=== PATIENT | female | born 1990 | race African-American/Black ===

== ENCOUNTER 2016-12-29 14:48 | Emergency (ER) | payer SELFPAY ==
--- NOTE | 2016-12-29 14:56 | ER Document Report ---
ED Medical Screen (RME) - General Stated Complaint: RIGHT EAR PAIN Notes: Patient complains of right ear right-sided ear pain for 1 week, worse today. Denies cough or cold symptoms. I have greeted and performed a rapid initial assessment of this patient. A comprehensive ED assessment and evaluation of the patient, analysis of test results and completion of the medical decision making process will be conducted by additional ED providers. TRAVEL OUTSIDE OF THE [place] IN LAST 30 DAYS: No - Related Data Allergies/Adverse Reactions: No Known Allergies Allergy (Verified 04/02/15 16:41) Past Medical History - Social History Family history: Reviewed & Not Pertinent Skin Medical History: Denies Hx MRSA - Immunizations Immunizations up to date: Yes Hx Diphtheria, Pertussis, Tetanus Vaccination: Yes - 2012 Physical Exam - General Notes: Patient in no acute distress, talking on her cell phone in triage.
--- NOTE | 2016-12-29 17:01 | ER Document Report ---
ED Headache - General Chief Complaint: Ear Pain Stated Complaint: RIGHT EAR PAIN Notes: Patient says that she's been experiencing pain in her right ear for the past week. Today, she felt pain in the right confucianism area and right eye and a generalized headache, described as "pressure". Has not taken anything for it, including aspirin or ibuprofen. Patient says she's been having headaches like this over the past couple of years her most recent was in May,. She says that she's had about 10 total episodes like this, but most of the time they don't last but a very short time and go away. Does not have any change in her vision. No nausea or vomiting. No fevers. No head congestion and nasal congestion or sinus congestion. LMP 2 weeks ago. TRAVEL OUTSIDE OF THE [place] IN LAST 30 DAYS: No - Related Data Allergies/Adverse Reactions: No Known Allergies Allergy (Verified 12/29/16 14:55) Past Medical History - Social History Smoking Status: Never Smoker Chew tobacco use (# tins/day): No Frequency of alcohol use: None Drug Abuse: None Family History: Reviewed & Not Pertinent, Arthritis, CAD, DM, Hyperlipidemia, Hypertension, Thyroid Disfunction Skin Medical History: Denies Hx MRSA - Immunizations Immunizations up to date: Yes Hx Diphtheria, Pertussis, Tetanus Vaccination: Yes - 2012 Review of Systems - Review of Systems Constitutional: denies: Fever EENT: Eye pain, Ear pain - See history of present illness.. denies: Eye discharge, Blurred vision, Tearing, Double vision, Ear discharge, Nose congestion, Sinus pressure, Difficulty swallowing, Mouth pain, Dental problem Cardiovascular: denies: Chest pain Respiratory: denies: Cough Gastrointestinal: denies: Abdominal pain, Diarrhea, Vomiting Physical Exam - Vital signs Vitals: Temp Pulse Resp BP Pulse Ox 98.2 F 88 18 136/70 H 97 12/29/16 14:53 12/29/16 14:53 12/29/16 14:53 12/29/16 14:53 12/29/16 14:53 Interpretation: Normal - Notes Notes: PHYSICAL EXAMINATION: GENERAL: Well-appearing, in no acute distress. Vital signs are normal. HEAD: Atraumatic, normocephalic. Not tender in the right confucianism. EYES: Pupils equal round and reactive to light, extraocular movements intact. Patient does not have any discomfort or pain when I palpate either eyeball. Both eyes are of normal pressure to my touch. Nothing that makes me think that this is glaucoma. No tearing from the right eye. No injection of the right conjunctiva. ENT: oropharynx clear without exudates. Moist mucous membranes. TMs are both visualized and they are normal. NECK: Normal range of motion, supple. LUNGS: Breath sounds clear and equal bilaterally. HEART: Regular rate and rhythm without murmurs. ABDOMEN: Soft, nontender. No guarding or rebound. BACK: No tenderness throughout entire back. EXTREMITIES: Normal range of motion without pain. NEUROLOGICAL: Normal speech, normal gait. Normal sensory, motor, and reflex exams. Awake, alert, and oriented x3. Cranial nerves normal. SKIN: Warm, dry, no rashes. Course - Vital Signs Vital signs: Temp Pulse Resp BP Pulse Ox 98.2 F 68 19 130/66 H 98 12/29/16 17:20 12/29/16 17:20 12/29/16 17:20 12/29/16 17:20 12/29/16 17:20 Discharge - Discharge Clinical Impression: Face pain, Ear pain, right Condition: Stable Disposition: HOME, SELF-CARE Additional Instructions: HEADACHE: The physician does not feel that the headache you are experiencing has a serious underlying cause. Most headaches are due to emotional stress, with resultant muscle tension (tension headache). Occasionally, headaches are secondary to changes in the blood vessels of the scalp (vascular headache and migraine headache). Sometimes, a headache is the first symptom of another developing illness, such as a viral infection. You have no evidence of stroke, bleeding, meningitis, or other serious cause of your headache. The treatment of headaches varies with the severity and cause of the pain. Not all headaches need pain shots. In fact, there is evidence that using narcotics for headaches may make them worse in the long run. The physician will determine the therapy that's in your best interest. If you develop a fever, if the headache is different from any you've previously experienced, or if the headache progressively worsens, then call your physician at once or go to the emergency room. NORMAL EXAM AND WORKUP: At this time, your examination and workup show no significant abnormality. No significant abnormal physical findings were noted. All laboratory, EKG, and imaging (x-ray, CT scans, ultrasound) studies that were ordered show no significant abnormality. Although your examination and all studies that were ordered showed no significant abnormal finding, there are no examinations and no studies that are 100% accurate. There is always the possibility that some abnormality could exist and not be detected with physical examination or within the limits and capabilities of laboratory and other studies. You should return or follow up as you were instructed on your visit today for further evaluation if your symptoms do not resolve. Ibuprofen Ibuprofen is an excellent, safe drug for pain control. In addition, it has potent antiinflammatory effects which are beneficial, especially in the treatment of injuries, arthritis, or tendonitis. It's best to take ibuprofen with food. Persons with ulcer disease or allergy to aspirin should notify their physician of this before taking ibuprofen. Take the medication exactly as prescribed. Don't take additional doses unless instructed to do so by your doctor. If you develop wheezing, shortness of breath, hives, faintness, stomach pain, vomiting, or dark black stools, return for re-evaluation at once. USE OF ACETAMINOPHEN (Tylenol): Acetaminophen may be taken for pain relief or fever control. It's much safer than aspirin, offering a wider range of "safe" dosages. It is safe during . Some brand names are Tylenol, Panadol, Datril, Anacin 3, Tempra, and Liquiprin. Acetaminophen can be repeated every four hours. The following are maximum recommended dosages: WEIGHT Dose Drops Elixir Chewable( 80mg) (LBS.) drprs=droppers tsp=teaspoon >89 pounds or adults 650 mg to 900 mg Acetaminophen can be repeated every four hours. Maximum dose not to exceed 4000 mg a day. These maximum recommended dosages are slightly higher than the dosages written on the product container, but these dosages are very safe and below the toxic dosage for acetaminophen. FOLLOW-UP CARE: If you have been referred to a physician for follow-up care, call the physician s office for an appointment as you were instructed or within the next two days. If you experience worsening or a significant change in your symptoms, notify the physician immediately or return to the Emergency Department at any time for re-evaluation. If you continue to have your symptoms or recurrent episodes of this face pain, I recommend you follow-up with a neurologist for possible migraine headache. I am providing you with contact information for neurologist in the area. Forms: Return to Work Referrals: BARRY VICTORIA MD [COMMUNITY BASED STAFF] - Follow up as needed MACEY FAIRCHILD MD [ACTIVE STAFF] - Follow up as needed RENETTA SMALLWOOD MD [EMERITUS] - Follow up as needed
[2016-12-29 17:36] VITALS: BP 130/66
== END 2016-12-29 17:20 | disposition home or self-care (01) ==
LOC: ER 14:48
DX: H92.01 Otalgia, right ear (principal); R51 Headache
CPT/HCPCS: 99282

== ENCOUNTER 2017-05-07 13:17 | Emergency (ER) | payer SELFPAY ==
--- NOTE | 2017-05-07 14:24 | ER Document Report ---
ED Medical Screen (RME) - General Chief Complaint: Nausea/Vomiting/Diarrhea Stated Complaint: DIARRHEA,ABDOMINAL PAIN,VOMITING Time Seen by Provider: 05/07/17 14:17 Mode of Arrival: Ambulatory Information source: Patient TRAVEL OUTSIDE OF THE [place] IN LAST 30 DAYS: No - HPI Onset: Other - 2 DAYS Onset/Duration: Gradual Quality of pain: Dull Severity: Mild Associated Symptoms: Diarrhea, Nausea, Vomiting. denies: Chills, Fever, Sweating Exacerbated by: Food Relieved by: Denies Similar symptoms previously: No Recently seen / treated by doctor: No - Related Data Allergies/Adverse Reactions: No Known Allergies Allergy (Verified 05/07/17 13:22) Home Medications: Current Home Medications No Home Medications 05/07/17 [History] Past Medical History - General Information source: Patient - Social History Chew tobacco use (# tins/day): No Frequency of alcohol use: Occasional Drug Abuse: None Lives with: Family Family history: Reviewed & Not Pertinent - Medical History Medical History: Negative Renal/ Medical History: Denies: Hx Peritoneal Dialysis Skin Medical History: Denies Hx MRSA Psychiatric Medical History: Reports: None Surgical Hx: Negative Past Surgical History: Reports: Hx Oral Surgery - wisdom tooth - Immunizations Immunizations up to date: Yes Hx Diphtheria, Pertussis, Tetanus Vaccination: Yes - 2012 Review of Systems - Review of Systems Constitutional: No symptoms reported EENT: No symptoms reported Cardiovascular: No symptoms reported Respiratory: No symptoms reported Gastrointestinal: See HPI Female Genitourinary: No symptoms reported Physical Exam - Vital signs Vitals: Temp Pulse Resp BP Pulse Ox 98.4 F 89 14 131/71 H 97 05/07/17 13:22 05/07/17 13:22 05/07/17 13:22 05/07/17 13:22 05/07/17 13:22 Interpretation: Normal. No: Tachycardic, Tachypneic, Febrile - General General appearance: Appears well, Alert In distress: None Course - Vital Signs Vital signs: Temp Pulse Resp BP Pulse Ox 98.4 F 89 14 131/71 H 97 05/07/17 13:22 05/07/17 13:22 05/07/17 13:22 05/07/17 13:22 05/07/17 13:22
[2017-05-07 15:53] LABS: ABSOLUTE BASOPHILS # (AUTO) 0.1 10^3/uL (0.0-0.2); ABSOLUTE EOSINOPHILS # (AUTO) 0.1 10^3/uL (0.0-0.6); ABSOLUTE LYMPHOCYTES (AUTO) 3.2 10^3/uL (0.5-4.7); ABSOLUTE MONOCYTES (AUTO) 1.3 10^3/uL (0.1-1.4); ABSOLUTE NEUT (AUTO) 5.1 10^3/uL (1.7-8.2); BASOPHILS % (AUTO) 0.7 % (0-2); EOSINOPHILS % (AUTO) 0.6 % (0-6); HEMATOCRIT 34.4 % (36.0-47.0); HEMOGLOBIN 10.9 g/dL (12.0-15.5); HGB HCT DIFFERENCE -1.7; LYMPHOCYTES % (AUTO) 32.8 % (13-45); MEAN CORPUSCULAR HEMOGLOBIN 24.6 pg (27.0-33.4); MEAN CORPUSCULAR HGB CONC 31.7 g/dL (32.0-36.0); MEAN CORPUSCULAR VOLUME 77 fl (80-97); MONOCYTES % (AUTO) 13.3 % (3-13); RED BLOOD COUNT 4.45 10^6/uL (3.72-5.28); SEGMENTED NEUTROPHILS % (AUTO) 52.6 % (42-78); WHITE BLOOD COUNT 9.7 10^3/uL (4.0-10.5)
[2017-05-07 16:01] LABS: ALANINE AMINOTRANSFERASE 28 U/L (9-52); ALBUMIN 4.5 g/dL (3.5-5.0); ALKALINE PHOSPHATASE 93 U/L (38-126); ANION GAP 12 (5-19); ASPARTATE AMINO TRANSFERASE 37 U/L (14-36); BILIRUBIN,DIRECT 0.3 mg/dL (0.0-0.4); BILIRUBIN,TOTAL 0.4 mg/dL (0.2-1.3); BLOOD UREA NITROGEN 9 mg/dL (7-20); CALCIUM 9.1 mg/dL (8.4-10.2); CARBON DIOXIDE 24 mmol/L (22-30); CHLORIDE 105 mmol/L (98-107); CREATININE RESULT 0.73 mg/dL (0.52-1.25); GLUCOSE 97 mg/dL (75-110); LIPASE 180.7 U/L (23-300); POTASSIUM 4.2 mmol/L (3.6-5.0); SODIUM 141.1 mmol/L (137-145); TOTAL PROTEIN 8.7 g/dL (6.3-8.2)
[2017-05-07 16:02] LABS: APPEARANCE,URINE SLIGHTLY-CLOUDY; BILIRUBIN,URINE NEGATIVE (NEGATIVE); GLUCOSE, URINE NEGATIVE (NEGATIVE); KETONES,URINE NEGATIVE (NEGATIVE); LEUKOCYTE ESTERASE,URINE NEGATIVE (NEGATIVE); NITRITE,URINE NEGATIVE (NEGATIVE); PROTEIN,URINE NEGATIVE (NEGATIVE); URINE SPECIFIC GRAVITY 1.021; UROBILINOGEN,URINE NEGATIVE mg/dL (<2.0)
[2017-05-07] MEDS ORDERED: ONDANSETRON HCL INJ/PF 4 MG/2 ML SDV IV ONE (16:28)
[2017-05-07] MEDS ORDERED: NORMAL SALINE 1000 ML 1,000 ML IV PRN (16:28)
--- NOTE | 2017-05-07 16:35 | ER Document Report ---
ED General - General Chief Complaint: Nausea/Vomiting/Diarrhea Stated Complaint: DIARRHEA,ABDOMINAL PAIN,VOMITING Time Seen by Provider: 05/07/17 14:17 Mode of Arrival: Ambulatory Information source: Patient Notes: 26-year-old female with no prior medical problems who presents to the emergency room with watery diarrhea, mucousy for the past several days. Patient denies any fever. She has been nauseated and she has had lower abdominal cramping. She does not she denies any abdominal pain. TRAVEL OUTSIDE OF THE [place] IN LAST 30 DAYS: No - HPI Onset: Yesterday Onset/Duration: Gradual Quality of pain: No pain, Cramping Severity: None Pain Level: Denies Associated symptoms: Diarrhea, Nausea, Vomiting. denies: Chest pain, Fever, Shortness of breath Exacerbated by: Denies Relieved by: Denies Similar symptoms previously: No Recently seen / treated by doctor: No - Related Data Allergies/Adverse Reactions: No Known Allergies Allergy (Verified 05/07/17 13:22) Past Medical History - General Information source: Patient - Social History Smoking Status: Never Smoker Cigarette use (# per day): No Chew tobacco use (# tins/day): No Frequency of alcohol use: Occasional Drug Abuse: None Lives with: Family Family History: Reviewed & Not Pertinent, Arthritis, CAD, DM, Hyperlipidemia, Hypertension, Thyroid Disfunction Patient has suicidal ideation: No Patient has homicidal ideation: No - Medical History Medical History: Negative Renal/ Medical History: Denies: Hx Peritoneal Dialysis Skin Medical History: Denies Hx MRSA Psychiatric Medical History: Reports: None Past Surgical History: Reports: Hx Oral Surgery - wisdom tooth - Immunizations Immunizations up to date: Yes Hx Diphtheria, Pertussis, Tetanus Vaccination: Yes - 2012 Review of Systems - Review of Systems Constitutional: denies: Chills, Fever EENT: No symptoms reported Cardiovascular: No symptoms reported Respiratory: No symptoms reported Gastrointestinal: See HPI Genitourinary: No symptoms reported Female Genitourinary: No symptoms reported Musculoskeletal: No symptoms reported Skin: No symptoms reported Hematologic/Lymphatic: No symptoms reported Neurological/Psychological: No symptoms reported Physical Exam - Vital signs Vitals: Temp Pulse Resp BP Pulse Ox 98.4 F 89 14 131/71 H 97 05/07/17 13:22 05/07/17 13:22 05/07/17 13:22 05/07/17 13:22 05/07/17 13:22 Notes: Physical exam: GENERAL: 26-year-old female, alert and oriented 3, no acute distress HEAD: Atraumatic, normocephalic. EYES: Pupils equal round and reactive to light, extraocular movements intact, sclera anicteric, conjunctiva are normal. ENT: TMs normal, nares patent, oropharynx clear without exudates. Moist mucous membranes. NECK: Normal range of motion, supple without lymphadenopathy or JVD. LUNGS: Breath sounds clear to auscultation bilaterally and equal. No wheezes rales or rhonchi. HEART: Regular rate and rhythm without murmurs, rubs or gallops. ABDOMEN: Soft, normoactive bowel sounds. No tenderness to palpation. No guarding, no rebound. No masses appreciated. EXTREMITIES: Normal range of motion, no pitting or edema. No clubbing or cyanosis. NEUROLOGICAL: Cranial nerves II through XII grossly intact. Normal speech, normal gait. PSYCH: Normal mood, normal affect. SKIN: Warm, Dry, normal turgor, no rashes or lesions noted. Course - Re-evaluation Re-evalutation: Repeat exam shows a soft abdomen without any peritoneal findings. Patient does not have any significant abdominal tenderness. We will treat supportively with fluids, anti-emetics and pain medicines. 05/07/17 20:56 - Vital Signs Vital signs: Temp Pulse Resp BP Pulse Ox 98.4 F 86 18 111/82 99 05/07/17 13:22 05/07/17 19:51 05/07/17 21:21 05/07/17 21:21 05/07/17 21:21 - Laboratory Result Diagrams: 05/07/17 15:30 05/07/17 15:30 Laboratory results interpreted by me: 05/07/17 05/07/17 15:30 15:30 Hgb 10.9 L Hct 34.4 L MCV 77 L MCH 24.6 L MCHC 31.7 L RDW 18.0 H Monocytes % 13.3 H AST 37 H Total Protein 8.7 H Discharge - Discharge Clinical Impression: Diarrhea with nausea Condition: Stable Disposition: HOME, SELF-CARE Instructions: Diarrhea, Nonspecific ([facility]), Antinausea Medication ([facility]), Vomiting ([facility]), Intravenous (IV) Fluids ([facility]) Additional Instructions: Recommendations: Rest, drink plenty of fluids, advance diet slowly. Take the Phenergan for nausea. Take Midol for any cramping. Return to the emergency room for any worsening pain, worsening bleeding, worsening diarrhea or any concerns or getting worse. Called the [facility] for a follow-up appointment. Prescriptions: Promethazine HCl [Phenergan 25 mg Tablet] 25 mg PO Q6H PRN #15 tablet PRN Reason: Forms: Return to Work Referrals: [facility] [Provider Group] - Follow up as needed
[2017-05-07] MEDS ORDERED: ONDANSETRON ODT 4 MG TAB (6 TAB/DSPK) PO PRN (20:58)
[2017-05-07 21:21] VITALS: BP 111/82
== END 2017-05-07 21:20 | disposition home or self-care (01) ==
LOC: ER 13:17
DX: R19.7 Diarrhea, unspecified (principal); R11.2 Nausea with vomiting, unspecified; R10.30 Lower abdominal pain, unspecified
CPT/HCPCS: 99283; 96361; 96374; 36415; 83690; 84703; 85025; 82272; 80053; 81001; 87493 ×2; J2405; J7030

== ENCOUNTER 2017-05-09 16:17 | Emergency (ER) | payer SELFPAY ==
[2017-05-09] MEDS ORDERED: NORMAL SALINE 1000 ML 1,000 ML IV PRN (17:17)
--- NOTE | 2017-05-09 17:18 | ER Document Report ---
ED Medical Screen (RME) - General Chief Complaint: Abdominal Pain Stated Complaint: ABDOMINAL PAIN,DIARRHEA Time Seen by Provider: 05/09/17 17:07 Mode of Arrival: Ambulatory Information source: Patient TRAVEL OUTSIDE OF THE [place] IN LAST 30 DAYS: No - HPI Patient complains to provider of: Abdominal pain with diarrhea Onset: Last week Onset/Duration: Persistent Quality of pain: Achy, Cramping Severity: Mild Pain Level: 2 Associated Symptoms: Diarrhea Notes: 05/09/17 17:18 Patient is a 26-year-old female presenting to the emergency room complaining of lower abdominal pain with diarrhea that has been going on for the past few days , was seen in this emergency room recently and had evaluation, was called by physician today for checkup, she reported she was not feeling much better and was advised to come back to the emergency room for reevaluation - Related Data Allergies/Adverse Reactions: No Known Allergies Allergy (Verified 05/09/17 16:35) Past Medical History - Social History Chew tobacco use (# tins/day): No Frequency of alcohol use: Social Drug Abuse: None Family history: Reviewed & Not Pertinent Renal/ Medical History: Denies: Hx Peritoneal Dialysis Skin Medical History: Denies Hx MRSA Past Surgical History: Reports: Hx Oral Surgery - wisdom tooth - Immunizations Immunizations up to date: Yes Hx Diphtheria, Pertussis, Tetanus Vaccination: Yes - 2012 Physical Exam - Vital signs Vitals: Temp Pulse Resp BP Pulse Ox 97.9 F 80 16 140/76 H 98 05/09/17 16:35 05/09/17 16:35 05/09/17 16:35 05/09/17 16:35 05/09/17 16:35 Course - Vital Signs Vital signs: Temp Pulse Resp BP Pulse Ox 97.9 F 80 16 140/76 H 98 05/09/17 16:35 05/09/17 16:35 05/09/17 16:35 05/09/17 16:35 05/09/17 16:35
[2017-05-09 18:13] LABS: ABSOLUTE EOSINOPHILS # (AUTO) 0.1 10^3/uL (0.0-0.6); ABSOLUTE LYMPHOCYTES (AUTO) 3.5 10^3/uL (0.5-4.7); ABSOLUTE NEUT (AUTO) 3.3 10^3/uL (1.7-8.2); BASOPHILS % (AUTO) 0.4 % (0-2); EOSINOPHILS % (AUTO) 1.7 % (0-6); HEMATOCRIT 32.6 % (36.0-47.0); HEMOGLOBIN 10.4 g/dL (12.0-15.5); HGB HCT DIFFERENCE -1.4; LYMPHOCYTES % (AUTO) 43.9 % (13-45); MEAN CORPUSCULAR HEMOGLOBIN 25.2 pg (27.0-33.4); MEAN CORPUSCULAR VOLUME 79 fl (80-97); MONOCYTES % (AUTO) 12.7 % (3-13); RED BLOOD COUNT 4.15 10^6/uL (3.72-5.28); RED CELL DISTRIBUTION WIDTH 17.8 % (11.5-14.0); SEGMENTED NEUTROPHILS % (AUTO) 41.3 % (42-78)
[2017-05-09 18:36] LABS: ALANINE AMINOTRANSFERASE 36 U/L (9-52); ALBUMIN 4.2 g/dL (3.5-5.0); ALKALINE PHOSPHATASE 74 U/L (38-126); ANION GAP 14 (5-19); ASPARTATE AMINO TRANSFERASE 30 U/L (14-36); BILIRUBIN,DIRECT 0.3 mg/dL (0.0-0.4); BILIRUBIN,TOTAL 0.4 mg/dL (0.2-1.3); BLOOD UREA NITROGEN 8 mg/dL (7-20); CALCIUM 9.3 mg/dL (8.4-10.2); CARBON DIOXIDE 20 mmol/L (22-30); CHLORIDE 104 mmol/L (98-107); CREATININE RESULT 0.71 mg/dL (0.52-1.25); GLUCOSE 79 mg/dL (75-110); LIPASE 309.7 U/L (23-300); POTASSIUM 4.2 mmol/L (3.6-5.0); SODIUM 138.4 mmol/L (137-145)
[2017-05-09 19:27] LABS: APPEARANCE,URINE CLEAR; BILIRUBIN,URINE NEGATIVE (NEGATIVE); GLUCOSE, URINE NEGATIVE (NEGATIVE); KETONES,URINE NEGATIVE (NEGATIVE); LEUKOCYTE ESTERASE,URINE NEGATIVE (NEGATIVE); NITRITE,URINE NEGATIVE (NEGATIVE); PROTEIN,URINE NEGATIVE (NEGATIVE); URINE SPECIFIC GRAVITY 1.009; UROBILINOGEN,URINE NEGATIVE mg/dL (<2.0)
--- NOTE | 2017-05-09 20:48 | RADIOLOGY REPORT (SQ) ---
EXAM DESCRIPTION: CT ABD/PELVIS WITH IV ORAL COMPLETED DATE/TIME: 05/09/2017 8:39 pm REASON FOR STUDY: abdominal pain COMPARISON: 03/30/2011 TECHNIQUE: CT scan of the abdomen and pelvis performed with intravenous and oral contrast using nicki tip scanning technique with dynamic intravenous contrast injection. Images reviewed with lung, soft t issue, and bone windows. Reconstructed coronal and sagittal MPR images reviewed. Delayed images for e valuation of the urinary system also acquired. All images stored on PACS. All CT scanners at this facility use dose modulation, iterative reconstruction, and/or weight based d osing when appropriate to reduce radiation dose to as low as reasonably achievable (ALARA). [facility]: Dose Right [facility]: CareDose [facility]: Dose Right [facility]: Teradose 4D [facility]: Life800 CONTRAST TYPE AND DOSE: contrast/concentration: Isovue 370.00 mg/ml; Total Contrast Delivered: 100.0 ml; Total Saline Delivered: 70.0 ml RENAL FUNCTION: None required. The patient is less than 50 years old. RADIATION DOSE: Up-to-date CT equipment and radiation dose reduction techniques were employed. CTDIv ol: NaN - NaN mGy. DLP: 0 mGy-cm. . LIMITATIONS: None. FINDINGS: LOWER CHEST: No significant findings. No nodules or infiltrates. LIVER: Normal size. No masses. No dilated ducts. SPLEEN: Normal size. No focal lesions. PANCREAS: No masses. No significant calcifications. No adjacent inflammation or peripancreatic fluid collections. Pancreatic duct not dilated. GALLBLADDER: No identified stones by CT criteria. No inflammatory changes to suggest cholecystitis. ADRENAL GLANDS: No significant masses or asymmetry. RIGHT KIDNEY AND URETER: No solid masses. No significant calcifications. No hydronephrosis or hyd roureter. LEFT KIDNEY AND URETER: No solid masses. No significant calcifications. No hydronephrosis or hydr oureter. AORTA AND VESSELS: No aneurysm. No dissection. Renal arteries, SMA, celiac without stenosis. RETROPERITONEUM: No retroperitoneal adenopathy, hemorrhage or masses. BOWEL AND PERITONEAL CAVITY: Generalized thickening of the bowel wall and mucosa of the sigmoid colon and rectum. APPENDIX: Normal. PELVIS: Free fluid in the pelvis. ABDOMINAL WALL: No masses. No hernias. BONES: No significant or acute findings. OTHER: No other significant finding. IMPRESSION: Rectosigmoid colitis. Free fluid in the pelvis. TECHNICAL DOCUMENTATION: JOB ID: [id number] Quality ID # [id number]: Final reports with documentation of one or more dose reduction techniques (e.g., Au tomated exposure control, adjustment of the mA and/or kV according to patient size, use of iterative reconstruction technique) 2010 [employer]- All Rights Reserved
[2017-05-09] MEDS ORDERED: LEVOFLOXACIN 500 MG/D5W RTU 100 ML IV ONE (21:03)
--- NOTE | 2017-05-09 21:36 | ER Document Report ---
ED General - General Chief Complaint: Abdominal Pain Stated Complaint: ABDOMINAL PAIN,DIARRHEA Time Seen by Provider: 05/09/17 17:07 Mode of Arrival: Ambulatory Information source: Patient Notes: This is a 26-year-old female with no prior medical problems who presented yesterday to the ER with nausea, vomiting, diarrhea for several days. Patient states she started to have blood in the diarrhea. She was treated with IV fluids and anti-emetics. On a follow-up call today, she did states she was having lower abdominal cramping so I referred her back to the ER for repeat evaluation. Patient states the nausea has actually gotten better and she has been able to drink fluids. She has not vomited. But she has had persistent watery diarrhea and at times there seems to be some blood in it. She denies any mucus. She does have crampy abdominal discomfort. She denies any vaginal discharge. She denies any fever. TRAVEL OUTSIDE OF THE [place] IN LAST 30 DAYS: No - HPI Onset: Last week Onset/Duration: Gradual Quality of pain: Cramping, Dull Severity: Mild Pain Level: 1 Associated symptoms: Diarrhea, Nausea. denies: Chest pain, Fever, Vomiting, Shortness of breath Exacerbated by: Denies Relieved by: Denies Similar symptoms previously: Yes Recently seen / treated by doctor: Yes - Related Data Allergies/Adverse Reactions: No Known Allergies Allergy (Verified 05/09/17 16:35) Past Medical History - General Information source: Patient - Social History Smoking Status: Never Smoker Cigarette use (# per day): No Chew tobacco use (# tins/day): No Frequency of alcohol use: Social Drug Abuse: None Lives with: Family Family History: Reviewed & Not Pertinent, Arthritis, CAD, DM, Hyperlipidemia, Hypertension, Thyroid Disfunction Patient has suicidal ideation: No Patient has homicidal ideation: No - Medical History Medical History: Negative Renal/ Medical History: Denies: Hx Peritoneal Dialysis Skin Medical History: Denies Hx MRSA Past Surgical History: Reports: Hx Oral Surgery - wisdom tooth - Immunizations Immunizations up to date: Yes Hx Diphtheria, Pertussis, Tetanus Vaccination: Yes - 2012 Review of Systems - Review of Systems Constitutional: denies: Chills, Fever EENT: No symptoms reported Cardiovascular: No symptoms reported Respiratory: No symptoms reported Gastrointestinal: See HPI Genitourinary: No symptoms reported Female Genitourinary: No symptoms reported Musculoskeletal: No symptoms reported Skin: No symptoms reported Hematologic/Lymphatic: No symptoms reported Neurological/Psychological: No symptoms reported Physical Exam - Vital signs Vitals: Temp Pulse Resp BP Pulse Ox 97.9 F 80 16 140/76 H 98 05/09/17 16:35 05/09/17 16:35 05/09/17 16:35 05/09/17 16:35 05/09/17 16:35 Notes: Physical exam: GENERAL: 26-year-old female, alert and oriented 3, no acute distress HEAD: Atraumatic, normocephalic. EYES: Pupils equal round and reactive to light, extraocular movements intact, sclera anicteric, conjunctiva are normal. ENT: TMs normal, nares patent, oropharynx clear without exudates. Moist mucous membranes. NECK: Normal range of motion, supple without lymphadenopathy or JVD. LUNGS: Breath sounds clear to auscultation bilaterally and equal. No wheezes rales or rhonchi. HEART: Regular rate and rhythm without murmurs, rubs or gallops. ABDOMEN: Soft, normoactive bowel sounds. Mild tenderness to the lower abdomen. No guarding, no rebound. No masses appreciated. EXTREMITIES: Normal range of motion, no pitting or edema. No clubbing or cyanosis. NEUROLOGICAL: Cranial nerves II through XII grossly intact. Normal speech, normal gait. PSYCH: Normal mood, normal affect. SKIN: Warm, Dry, normal turgor, no rashes or lesions noted. Course - Re-evaluation Re-evalutation: 05/09/17 21:37 In general, the patient does look better than 2 days ago when I saw her. However, because of the persistent discomfort, we did get a CT of the abdomen and it does show a colitis. Her abdomen is soft and there is no peritonitis at this time. The patient was started on IV levofloxacin and I am going to send her home with oral Levaquin. Her white blood count is remained normal. Her electrolytes have been good. The stool culture from 2 days ago was canceled for some unknown reason, so we did send a fresh sample down to the lab for culture. The stool was liquid green without any obvious blood. 05/09/17 21:50 05/09/17 21:52 - Vital Signs Vital signs: Temp Pulse Resp BP Pulse Ox 97.9 F 80 16 140/76 H 98 05/09/17 16:35 05/09/17 16:35 05/09/17 16:35 05/09/17 16:35 05/09/17 16:35 - Laboratory Result Diagrams: 05/09/17 17:35 05/09/17 17:35 Laboratory results interpreted by me: 05/09/17 05/09/17 17:35 17:35 Hgb 10.4 L Hct 32.6 L MCV 79 L MCH 25.2 L RDW 17.8 H Seg Neutrophils % 41.3 L Carbon Dioxide 20 L Lipase 309.7 H - Diagnostic Test Radiology reviewed: Image reviewed, Reports reviewed - The CT shows a recto sigmoid colitis. There is some free fluid in the pelvic cul-de-sac. Discharge - Discharge Clinical Impression: Colitis Condition: Stable Disposition: HOME, SELF-CARE Instructions: Colitis, Nonspecific ([facility]) Additional Instructions: Recommendations: Rest, drink plenty of fluids. Continue the Phenergan for nausea as needed. Take the antibiotic once daily (levofloxacin): Start tomorrow, you given today' s dose in the ER. Take the Percocet as needed for pain: This is a lower dose. Follow-up with the GI doctor: I left the number on the chart. Call the office tomorrow and tell them you are in the emergency room and diagnosed with colitis in the ER doctor wanted to seen in the next week or 2. We sent stool cultures which may take several days to come back. Return to the emergency room for worsening pain, not tolerating fluids or any concerns or getting worse. Prescriptions: Oxycodone HCl/Acetaminophen [Percocet 2.5-325 Mg Tablet] 1 each PO Q6HP PRN #20 tablet PRN Reason: Levofloxacin 500 mg PO DAILY #7 ml Referrals: STEPHEN SALDAÑA MD [ACTIVE STAFF] - Follow up as needed (This is the number of the GI office: Call tomorrow and tell them you in the emergency room for colitis and the ER doctor wanted you seen in the next week or so. Bring a copy of your labs, and CT report with you when you go see that )
[2017-05-09 23:58] VITALS: BP 101/67
== END 2017-05-10 00:06 | disposition home or self-care (01) ==
LOC: ER 16:17
DX: A02.0 Salmonella enteritis (principal); R10.30 Lower abdominal pain, unspecified; R11.0 Nausea
CPT/HCPCS: 99284; 96361; 96365; 36415; 87045; 87086; 87205; 83690; 84703; 85025; 87077; 80053; 81001; 87186; 74177; J1956; J7030

== ENCOUNTER 2017-11-06 15:27 | Emergency (ER) | payer SELFPAY ==
[2017-11-06 15:35] VITALS: BP 151/79
--- NOTE | 2017-11-06 16:18 | ER Document Report ---
HPI - HPI Patient complains to provider of: Headache congestion sore throat cough chest pain runny nose shortness of br Onset: Other - Onset/Duration: Persistent Severity: Moderate Pain Level: 4 Context: Patient presents emergency department with multiple complaints to include headache runny nose sore throat shortness of breath runny eyes and chest pain. She reports her main complaint is a headache in her forehead with her congested nose. She reports she took Tylenol last night and this morning. She reports she is eating drinking without problems denies fever nausea vomiting diarrhea. Reports her chest started hurting when she had a cough. She is not coughing now. No shortness of breath now. Patient reports she had to leave work because she was not feeling well. She denies trauma. Patient speaking in clear voice no distress drinking fountain drink. Associated Symptoms: Nonproductive cough, Headache. denies: Fever, Nausea, Vomiting Exacerbated by: Denies Relieved by: Denies Similar symptoms previously: No Recently seen / treated by doctor: No - REPRODUCTIVE Reproductive: DENIES: : Past Medical History - General Information source: Patient Last Menstrual Period: Last month - Social History Smoking Status: Unknown if Ever Smoked Cigarette use (# per day): No Frequency of alcohol use: Occasional Drug Abuse: None Occupation: [employer] Lives with: Family Family History: Reviewed & Not Pertinent, Arthritis, CAD, DM, Hyperlipidemia, Hypertension, Thyroid Disfunction Patient has suicidal ideation: No Patient has homicidal ideation: No - Medical History Medical History: Negative Renal/ Medical History: Denies: Hx Peritoneal Dialysis Skin Medical History: Denies Hx MRSA Past Surgical History: Reports: Hx Oral Surgery - wisdom tooth - Immunizations Immunizations up to date: Yes Hx Diphtheria, Pertussis, Tetanus Vaccination: Yes - 2013 Vertical Provider Document - CONSTITUTIONAL Agree With Documented VS: Yes Exam Limitations: No Limitations General Appearance: WD/WN, No Apparent Distress - INFECTION CONTROL TRAVEL OUTSIDE OF THE [place] IN LAST 30 DAYS: No - HEENT HEENT: Atraumatic, Normocephalic, PERRLA. negative: Pharyngeal Exudate, Pharyngeal Tenderness, Pharyngeal Erythema - Open his mouth wide speaks in clear voice, Tympanic Membrane Red, Tympanic Membrane Bulging - NECK Neck: Normal Inspection, Supple. negative: Lymphadenopathy-Left, Lymphadenopathy-Right - RESPIRATORY Respiratory: Breath Sounds Normal, No Respiratory Distress - No cough noted during entire interview and assessment O2 Sat by Pulse Oximetry: 100 - CARDIOVASCULAR Cardiovascular: Regular Rate, Regular Rhythm - GI/ABDOMEN Gastrointestinal: Abdomen Soft, Abdomen Non-Tender - MUSCULOSKELETAL/EXTREMETIES Musculoskeletal/Extremeties: MAEW, FROM, Non-Tender - NEURO Level of Consciousness: Awake, Alert, Appropriate Motor/Sensory: No Motor Deficit - DERM Integumentary: Warm, Dry Course - Re-evaluation Re-evalutation: 11/06/17 16:16 Patient instructed on Tylenol for headache and decongestant for her nose. Patient instructed to push fluids good handwashing. She verbalized understanding tall instructions. - Vital Signs Vital signs: Temp Pulse Resp BP Pulse Ox 98.4 F 97 18 151/79 H 100 11/06/17 15:33 11/06/17 15:33 11/06/17 15:33 11/06/17 15:33 11/06/17 15:33 Discharge - Discharge Clinical Impression: Sore throat, headache, congestion Condition: Stable Disposition: HOME, SELF-CARE Instructions: Acetaminophen Additional Instructions: *You have been evaluated for a sore throat, nonproductive cough headache congestion *Take over the counter nasal decongestant, tylenol for headache as indicated *Warm salt water gargles and throat lozenges for comfort *Do not let anyone drink/eat after you *Good hand washing *Follow-up with a primary care provider within one week for recheck *Return to ED for worsening condition change, needs, trouble swallowing concerns Monitor your blood pressure. Your blood pressure was elevated today. This may be because you were anxious, in pain or because you need medication. It is important to follow up with your primary care provider for full evaluation. Forms: Elevated Blood Pressure, Return to Work
== END 2017-11-06 16:20 | disposition home or self-care (01) ==
LOC: ER 15:27
DX: J02.9 Acute pharyngitis, unspecified (principal); R09.81 Nasal congestion; R51 Headache; R07.9 Chest pain, unspecified; R09.89 Other specified symptoms and signs involving the circulatory and respiratory systems; H57.8 Other specified disorders of eye and adnexa
CPT/HCPCS: 99283

== ENCOUNTER 2018-02-17 13:02 | Emergency (ER) | payer SELFPAY ==
[2018-02-17 13:08] VITALS: BP 155/78
--- NOTE | 2018-02-17 13:13 | ER Document Report ---
HPI - HPI Patient complains to provider of: Abscess Onset: Yesterday Pain Level: 3 Context: 27-year-old obese female with a abscess under her left breast that she noticed yesterday. Is getting bigger and more painful and red. No allergies. No history of MRSA. Nondiabetic. Ended her menses yesterday. Associated Symptoms: None Exacerbated by: Sitting, Movement Relieved by: Denies - ROS ROS below otherwise negative: Yes Systems Reviewed and Negative: Yes All other systems reviewed and negative - REPRODUCTIVE Reproductive: DENIES: : Past Medical History - General Information source: Patient - Social History Smoking Status: Never Smoker Frequency of alcohol use: Occasional Drug Abuse: None Lives with: Family Family History: Reviewed & Not Pertinent, Arthritis, CAD, DM, Hyperlipidemia, Hypertension, Thyroid Disfunction - Medical History Medical History: Negative Renal/ Medical History: Denies: Hx Peritoneal Dialysis Skin Medical History: Denies Hx MRSA Past Surgical History: Reports: Hx Oral Surgery - wisdom tooth - Immunizations Immunizations up to date: Yes Hx Diphtheria, Pertussis, Tetanus Vaccination: Yes - 2012 Vertical Provider Document - CONSTITUTIONAL Agree With Documented VS: Yes Exam Limitations: No Limitations - INFECTION CONTROL TRAVEL OUTSIDE OF THE [place] IN LAST 30 DAYS: No - HEENT HEENT: Normocephalic - NECK Neck: Supple - MUSCULOSKELETAL/EXTREMETIES Musculoskeletal/Extremeties: MAEW - NEURO Level of Consciousness: Awake - DERM Integumentary: Abscess - Follicular abscess with 1 cm fluctuant middle and 2-1/ 2 cm of induration and erythema Adult Front & Back Diagram: 2 - abscess location Course - Vital Signs Vital signs: Temp Pulse Resp BP Pulse Ox 98.3 F 90 18 155/78 H 98 02/17/18 13:06 02/17/18 13:06 02/17/18 13:06 02/17/18 13:06 02/17/18 13:06 Procedures - Incision and Drainage Left Abdomen Time completed: 14:52 Type: Simple Anesthetic type: 1% Lidocaine mL's of anesthetic: 3 Blade size: 11 I&D procedure: Betadine prep applied Incision Method: Incision made by scalpel Notes: 02/17/18 14:52 moderate pus Discharge - Discharge Clinical Impression: I&D follicular abscess Condition: Good Disposition: HOME, SELF-CARE Instructions: Abscess (OM), Cephalexin (OM), Post Incision and Drainage, Trimethoprim-Sulfa (OM), Warm Packs (OM) Additional Instructions: warm compress Keep the dressing on for 2 days Remove the dressing and wash vigorously with a washcloth antibacterial soap and water and dry dressing Return to the emergency room any spinning of the symptoms or fever. Prescriptions: Ibuprofen [Motrin 800 mg Tablet] 800 mg PO Q8HP PRN #30 tablet PRN Reason: Cephalexin Monohydrate [Keflex 500 mg Capsule] 500 mg PO QID #28 capsule Sulfamethoxazole/Trimethoprim [Sulfamethoxazole-Tmp Ds Tablet] 1 each PO BID # 14 tablet
[2018-02-17] MEDS ORDERED: SULFAMETHOXAZOLE/TRIMETHOPRIM 800-160 MG TABLET PO ONE (13:22)
[2018-02-17] MEDS ORDERED: ACETAMINOPHEN 325 MG TABLET PO ONE (13:22)
[2018-02-17] MEDS ORDERED: ONDANSETRON 4 MG TAB.RAPDIS PO ONE (13:22)
[2018-02-17] MEDS ORDERED: CEPHALEXIN 500 MG CAPSULE PO ONE (13:22)
== END 2018-02-17 15:08 | disposition home or self-care (01) ==
LOC: ER 13:02
PROC: 0H97XZZ Drainage of Abdomen Skin, External Approach (ICD-10-PCS; principal; 2018-02-17)
DX: L02.211 Cutaneous abscess of abdominal wall (principal)
CPT/HCPCS: 99283; 10060; S0119

== ENCOUNTER 2018-03-30 08:24 | Emergency (ER) | payer SELFPAY ==
[2018-03-30] MEDS ORDERED: ONDANSETRON 4 MG TAB.RAPDIS PO ONE (09:33)
[2018-03-30 10:02] LABS: ALANINE AMINOTRANSFERASE 36 U/L (9-52); ALBUMIN 4.5 g/dL (3.5-5.0); ALKALINE PHOSPHATASE 81 U/L (38-126); ANION GAP 10 (5-19); ASPARTATE AMINO TRANSFERASE 35 U/L (14-36); BILIRUBIN,DIRECT 0.3 mg/dL (0.0-0.4); BILIRUBIN,TOTAL 0.5 mg/dL (0.2-1.3); BLOOD UREA NITROGEN 12 mg/dL (7-20); CARBON DIOXIDE 27 mmol/L (22-30); CHLORIDE 107 mmol/L (98-107); GLUCOSE 89 mg/dL (75-110); POTASSIUM 4.3 mmol/L (3.6-5.0); SODIUM 143.6 mmol/L (137-145); TOTAL PROTEIN 8.6 g/dL (6.3-8.2)
--- NOTE | 2018-03-30 11:40 | ER Document Report ---
ED GI/ - General Chief Complaint: Vomiting/Diarrhea Stated Complaint: STOMACH PAIN,DIARRHEA Time Seen by Provider: 03/30/18 08:55 Mode of Arrival: Ambulatory Information source: Patient Notes: Patient is a 27-year-old female who presents to the ER today for nausea, vomiting, watery diarrhea since midnight last night. Patient admits to all over abdominal cramping as well that started after the nausea and vomiting started. Patient admits to chills but denies any fever. Patient has no medical history of any abdominal issues. TRAVEL OUTSIDE OF THE [place] IN LAST 30 DAYS: No - Related Data Allergies/Adverse Reactions: No Known Allergies Allergy (Verified 03/30/18 08:25) Past Medical History - General Information source: Patient - Social History Smoking Status: Never Smoker Chew tobacco use (# tins/day): No Frequency of alcohol use: Social Drug Abuse: None Family History: Reviewed & Not Pertinent, Arthritis, CAD, DM, Hyperlipidemia, Hypertension, Thyroid Disfunction Patient has suicidal ideation: No Patient has homicidal ideation: No Renal/ Medical History: Denies: Hx Peritoneal Dialysis Skin Medical History: Denies Hx MRSA Past Surgical History: Reports: Hx Oral Surgery - wisdom teeth - Immunizations Immunizations up to date: Yes Hx Diphtheria, Pertussis, Tetanus Vaccination: Yes - 2012 Review of Systems - Review of Systems Constitutional: See HPI EENT: No symptoms reported Cardiovascular: No symptoms reported Respiratory: No symptoms reported Gastrointestinal: See HPI Genitourinary: No symptoms reported Female Genitourinary: No symptoms reported Musculoskeletal: No symptoms reported Skin: No symptoms reported Hematologic/Lymphatic: No symptoms reported Neurological/Psychological: No symptoms reported Physical Exam - Vital signs Vitals: Temp Pulse Resp BP Pulse Ox 97.6 F 93 16 130/72 H 100 03/30/18 10:03 03/30/18 10:03 03/30/18 10:03 03/30/18 10:03 03/30/18 10:03 - Notes Notes: PHYSICAL EXAMINATION: GENERAL: Well-appearing and in no acute distress. HEAD: Atraumatic, normocephalic. EYES: Pupils equal round and reactive to light, extraocular movements intact, sclera anicteric, conjunctiva are normal. NECK: Normal range of motion, supple without lymphadenopathy LUNGS: CTAB and equal. No wheezes rales or rhonchi. HEART: Regular rate and rhythm without murmurs ABDOMEN: Soft, no tenderness. No guarding, no rebound BACK: no vertebral tenderness, normal ROM GI/: no CVA tenderness EXTREMITIES: Normal range of motion, no pitting edema. No cyanosis. NEUROLOGICAL: Cranial nerves grossly intact. Normal sensory/motor exams. PSYCH: Normal mood, normal affect. SKIN: Warm, Dry, normal turgor, no rashes or lesions noted Course - Re-evaluation Re-evalutation: 03/30/18 15:49 Lab work is unremarkable today, negative today, patient has not vomited here at all nor has she had a bowel movement. Patient was given Zofran and tolerated p.o. fluids and food before leaving. Patient requested a work note. - Vital Signs Vital signs: Temp Pulse Resp BP Pulse Ox 97.8 F 65 14 133/78 H 98 03/30/18 12:18 03/30/18 12:18 03/30/18 12:18 03/30/18 12:18 03/30/18 12:18 - Laboratory Result Diagrams: 03/30/18 09:20 03/30/18 09:20 Laboratory results interpreted by me: 03/30/18 03/30/18 09:20 09:20 Hgb 10.9 L Hct 35.2 L MCV 77 L MCH 23.9 L MCHC 31.1 L RDW 19.7 H Plt Count 498 H Total Protein 8.6 H Discharge - Discharge Clinical Impression: Nausea vomiting and diarrhea Condition: Stable Disposition: HOME, SELF-CARE Instructions: Diarrhea, Nonspecific ([facility]), Vomiting ([facility]) Additional Instructions: Return immediately for any new or worsening symptoms. Follow up with primary care provider, call tomorrow to make followup appointment. Please drink plenty of fluids, Gatorade if you continue to have vomiting and diarrhea. Please stick to a bland diet, bananas, rice, applesauce and toast are foods on the brat diet. Prescriptions: Ondansetron [Zofran Odt 4 mg Tablet] 1 - 2 tab PO Q4H PRN #15 tab.rapdis PRN Reason: For Nausea/Vomiting Forms: Return to Work
[2018-03-30 11:44] LABS: ABSOLUTE BASOPHILS # (AUTO) 0.1 10^3/uL (0.0-0.2); ABSOLUTE EOSINOPHILS # (AUTO) 0.1 10^3/uL (0.0-0.6); ABSOLUTE LYMPHOCYTES (AUTO) 2.8 10^3/uL (0.5-4.7); ABSOLUTE MONOCYTES (AUTO) 0.8 10^3/uL (0.1-1.4); ABSOLUTE NEUT (AUTO) 4.6 10^3/uL (1.7-8.2); BASOPHILS % (AUTO) 0.6 % (0-2); HEMATOCRIT 35.2 % (36.0-47.0); HEMOGLOBIN 10.9 g/dL (12.0-15.5); LYMPHOCYTES % (AUTO) 33.3 % (13-45); MEAN CORPUSCULAR HEMOGLOBIN 23.9 pg (27.0-33.4); MEAN CORPUSCULAR HGB CONC 31.1 g/dL (32.0-36.0); MEAN CORPUSCULAR VOLUME 77 fl (80-97); MONOCYTES % (AUTO) 9.7 % (3-13); PLATELET COUNT 498 10^3/uL (150-450); RED BLOOD COUNT 4.57 10^6/uL (3.72-5.28); RED CELL DISTRIBUTION WIDTH 19.7 % (11.5-14.0); SEGMENTED NEUTROPHILS % (AUTO) 55.4 % (42-78); TOTAL CELLS COUNTED % (AUTO) 100 %; WHITE BLOOD COUNT 8.3 10^3/uL (4.0-10.5)
[2018-03-30 12:11] LABS: AMORPHOUS SEDIMENT,URINE 2+ /HPF; APPEARANCE,URINE TURBID; BILIRUBIN,URINE NEGATIVE (NEGATIVE); COLOR,URINE YELLOW; GLUCOSE, URINE NEGATIVE (NEGATIVE); KETONES,URINE NEGATIVE (NEGATIVE); LEUKOCYTE ESTERASE,URINE NEGATIVE (NEGATIVE); NITRITE,URINE NEGATIVE (NEGATIVE); PROTEIN,URINE NEGATIVE (NEGATIVE); URINE SPECIFIC GRAVITY 1.027; UROBILINOGEN,URINE NEGATIVE mg/dL (<2.0)
[2018-03-30 12:23] VITALS: BP 133/78
== END 2018-03-30 12:22 | disposition home or self-care (01) ==
LOC: ER 08:24
DX: R11.2 Nausea with vomiting, unspecified (principal); R19.7 Diarrhea, unspecified; R10.84 Generalized abdominal pain; R68.83 Chills (without fever)
CPT/HCPCS: 99284; 36415; 85025; 81025; 80053; 81001; S0119

== ENCOUNTER 2018-08-05 18:36 | Emergency (ER) | payer SELFPAY ==
[2018-08-05] MEDS ORDERED: NORMAL SALINE 1000 ML 1,000 ML IV ONE (19:25)
[2018-08-05] MEDS ORDERED: METOCLOPRAMIDE HCL INJ/PF 10 MG/2 ML SDV IV ONE (19:25)
[2018-08-05] MEDS ORDERED: DIPHENHYDRAMINE HCL 50 MG/ML VIAL IV ONE (19:26)
[2018-08-05] MEDS ORDERED: KETOROLAC TROMETHAMINE INJ/PF 30 MG/1 ML SDV IV ONE (19:26)
--- NOTE | 2018-08-05 21:28 | ER Document Report ---
ED Headache - General Chief Complaint: Headache Stated Complaint: HEADACHE Time Seen by Provider: 08/05/18 19:21 Notes: Patient is a 28 year old female that comes to the ED for chief complaint of a headache that started 2 days ago. She states the headache started gradually and worsened until it was throbbing behind her right eye. She reports photophobia and phonophobia, she denies nausea or vomiting, denies neck pain or stiffness. Denies fever chills. She reports occasional headaches, does not take medication for migraine. She states her headache is 5 out of 10 pain at this time. She denies any daily medications, LMP within the past month, denies any medical history other than dental surgery. TRAVEL OUTSIDE OF THE [place] IN LAST 30 DAYS: No - Related Data Allergies/Adverse Reactions: No Known Allergies Allergy (Verified 03/30/18 08:25) Past Medical History - General Information source: Patient - Social History Smoking Status: Never Smoker Chew tobacco use (# tins/day): No Frequency of alcohol use: Rare Drug Abuse: None Lives with: Family Family History: Reviewed & Not Pertinent, Arthritis, CAD, DM, Hyperlipidemia, Hypertension, Thyroid Disfunction Patient has suicidal ideation: No Patient has homicidal ideation: No - Medical History Medical History: Negative Renal/ Medical History: Denies: Hx Peritoneal Dialysis Skin Medical History: Denies Hx MRSA Past Surgical History: Reports: Hx Oral Surgery - wisdom teeth - Immunizations Immunizations up to date: Yes Hx Diphtheria, Pertussis, Tetanus Vaccination: Yes - 2012 Review of Systems - Review of Systems Constitutional: No symptoms reported EENT: No symptoms reported Cardiovascular: No symptoms reported Respiratory: No symptoms reported Gastrointestinal: No symptoms reported Genitourinary: No symptoms reported Female Genitourinary: No symptoms reported Musculoskeletal: No symptoms reported Skin: No symptoms reported Hematologic/Lymphatic: No symptoms reported Neurological/Psychological: See HPI Physical Exam - Vital signs Vitals: Temp Pulse Resp BP Pulse Ox 98.5 F 83 16 144/75 H 98 08/05/18 18:52 08/05/18 18:52 08/05/18 18:52 08/05/18 18:52 08/05/18 18:52 - Notes Notes: GENERAL: Alert, interacts well. Patient is squinting and avoiding light but does not appear to be in distress otherwise. HEAD: Normocephalic, atraumatic. EYES: Pupils equal, round, and reactive to light. Extraocular movements intact. ENT: Oral mucosa moist, tongue midline. Oropharynx unremarkable. Airway patent. Nares patent, no nasal septal hematoma, TM's intact. NECK: Full range of motion. Supple. Trachea midline. LUNGS: Clear to auscultation bilaterally, no wheezes, rales, or rhonchi. No respiratory distress. HEART: Regular rate and rhythm. No murmur ABDOMEN: Soft, non-tender. Non-distended. Bowel sounds present in all 4 quadrants. GENITOURINARY: Deferred EXTREMITIES: Moves all 4 extremities spontaneously. No edema, normal radial and dorsalis pedis pulses bilaterally. No cyanosis. BACK: no cervical, thoracic, lumbar midline tenderness. No saddle anesthesia, normal distal neurovascular exam. NEUROLOGICAL: Alert and oriented x3. Normal speech. [cranial nerves II through XII grossly intact]. PSYCH: Normal affect, normal mood. SKIN: Warm, dry, normal turgor. No rashes or lesions noted. Course - Re-evaluation Re-evalutation: Neurological exam is normal. Patient is not exhibiting any distress except for some mild photophobia. Reports 5 out of 10 headache. Unremarkable neck exam. Headache was gradual in onset, no vomiting. Borderline elevated blood pressure. No fever. After medications patient was reevaluated and states her headache is gone. She states she is tired and ready to go home. Triage labs reviewed. CBC unremarkable except for mild microcytic anemia, chemistry unremarkable, hCG is negative. Discussed headache, headache symptoms, treatment, follow-up, and return precautions. Patient states understanding and agreement with plan. - Vital Signs Vital signs: Temp Pulse Resp BP Pulse Ox 98.5 F 83 16 144/75 H 98 08/05/18 18:52 08/05/18 18:52 08/05/18 18:52 08/05/18 18:52 08/05/18 18:52 - Laboratory Result Diagrams: 08/05/18 22:05 08/05/18 22:05 Laboratory results interpreted by me: 08/05/18 08/05/18 22:05 22:05 Hgb 10.5 L Hct 32.5 L MCV 78 L MCH 25.3 L RDW 18.9 H Seg Neutrophils % 35.0 L Lymphocytes % 47.3 H Monocytes % 14.6 H Chloride 110 H Discharge - Discharge Clinical Impression: Headache Qualifiers: Headache type: unspecified Headache chronicity pattern: acute headache Intractability: not intractable Qualified Code(s): R51 - Headache Condition: Stable Disposition: HOME, SELF-CARE Additional Instructions: Your symptoms and response to treatment are consistent with a migraine. For headaches you can take [id number] medications such as ibuprofen, Tylenol, Benadryl, or you can take the medication as prescribed for headache. Follow-up with primary care for additional evaluation and management of headaches. Return if you worsen including returned or severe headache, fever of 100.4 or greater, vomiting, or any other concerning or worsening symptoms. Your workup today showed hemoglobin of 10.5 with the appearance of likely iron deficiency anemia. Recommendation is to improve iron in your diet, you can take the [id number] iron that you purchased, and follow-up with primary care for additional management of this. Prescriptions: Butalb/Acetaminophen/Caffeine [Fioricet (50-325-40 mg) Tablet] 1 - 2 tab PO Q4H #20 tab Forms: Return to Work, Elevated Blood Pressure
[2018-08-05 22:18] LABS: ABSOLUTE BASOPHILS # (AUTO) 0.1 10^3/uL (0.0-0.2); ABSOLUTE EOSINOPHILS # (AUTO) 0.2 10^3/uL (0.0-0.6); ABSOLUTE MONOCYTES (AUTO) 1.2 10^3/uL (0.1-1.4); BASOPHILS % (AUTO) 0.7 % (0-2); HEMOGLOBIN 10.5 g/dL (12.0-15.5); MEAN CORPUSCULAR HEMOGLOBIN 25.3 pg (27.0-33.4); MONOCYTES % (AUTO) 14.6 % (3-13); RED BLOOD COUNT 4.15 10^6/uL (3.72-5.28); TOTAL CELLS COUNTED % (AUTO) 100 %
[2018-08-05 22:22] LABS: EOSINOPHILS % (AUTO) 2.4 % (0-6); HEMATOCRIT 32.5 % (36.0-47.0); LYMPHOCYTES % (AUTO) 47.3 % (13-45); MEAN CORPUSCULAR HGB CONC 32.3 g/dL (32.0-36.0); MEAN CORPUSCULAR VOLUME 78 fl (80-97); PLATELET COUNT 415 10^3/uL (150-450); RED CELL DISTRIBUTION WIDTH 18.9 % (11.5-14.0); WHITE BLOOD COUNT 8.5 10^3/uL (4.0-10.5)
[2018-08-05 22:32] LABS: ALANINE AMINOTRANSFERASE 28 U/L (9-52); ALKALINE PHOSPHATASE 78 U/L (38-126); ANION GAP 12 (5-19); ASPARTATE AMINO TRANSFERASE 27 U/L (14-36); BILIRUBIN,DIRECT 0.1 mg/dL (0.0-0.4); BILIRUBIN,TOTAL 0.2 mg/dL (0.2-1.3); BLOOD UREA NITROGEN 14 mg/dL (7-20); CALCIUM 9.5 mg/dL (8.4-10.2); CARBON DIOXIDE 22 mmol/L (22-30); CHLORIDE 110 mmol/L (98-107); GLUCOSE 102 mg/dL (75-110); POTASSIUM 4.3 mmol/L (3.6-5.0); SODIUM 144.1 mmol/L (137-145); TOTAL PROTEIN 7.7 g/dL (6.3-8.2)
[2018-08-05 23:58] VITALS: BP 118/75
== END 2018-08-05 23:58 | disposition home or self-care (01) ==
LOC: ER 18:36
DX: R51 Headache (principal)
CPT/HCPCS: 99284; 96361; 96374; 96375; 36415; 84702; 85025; 80053; J1200; J1885; J2765; J7030

== ENCOUNTER 2018-09-06 16:16 | Emergency (ER) | payer SELFPAY ==
[2018-09-06 16:22] VITALS: BP 145/68
[2018-09-06] MEDS ORDERED: PENICILLIN G BENZATHINE 1.2 MILLION UNIT/2 ML DISP.SYRIN IM ONE (16:56)
[2018-09-06] MEDS ORDERED: IBUPROFEN 800 MG TABLET PO ONE (16:56)
[2018-09-06] MEDS ORDERED: LIDOCAINE 2% VISCOUS SOLN 20 ML UDCUP PO ONE (16:56)
[2018-09-06] MEDS ORDERED: DEXAMETHASONE 4 MG TABLET PO ONE (16:57)
--- NOTE | 2018-09-06 17:00 | ER Document Report ---
HPI - HPI Patient complains to provider of: Sore throat Time Seen by Provider: 09/06/18 16:51 Onset: Yesterday Onset/Duration: Gradual Quality of pain: Achy Pain Level: 3 Context: Patient presents complaining of sore throat with exudate that started yesterday. Patient denies any fever. Associated Symptoms: Headache, Sore throat. denies: Earache, Fever, Vomiting Exacerbated by: Denies Relieved by: Denies Similar symptoms previously: Yes Recently seen / treated by doctor: No - ROS ROS below otherwise negative: Yes Systems Reviewed and Negative: Yes All other systems reviewed and negative - CONSTITUTIONAL Constitutional: DENIES: Fever - EENT EENT: REPORTS: Sore Throat - NEURO Neurology: REPORTS: Headache - RESPIRATORY Respiratory: DENIES: Coughing - GASTROINTESTINAL Gastrointestinal: DENIES: Nausea, Patient vomiting - REPRODUCTIVE Reproductive: DENIES: : - MUSCULOSKELETAL Musculoskeletal: DENIES: Back Pain, Neck Pain - DERM Skin Color: Normal Skin Problems: None Past Medical History - General Information source: Patient - Social History Smoking Status: Never Smoker Frequency of alcohol use: Occasional Drug Abuse: None Occupation: [employer] Family History: Reviewed & Not Pertinent, Arthritis, CAD, DM, Hyperlipidemia, Hypertension, Thyroid Disfunction - Medical History Medical History: Negative Renal/ Medical History: Denies: Hx Peritoneal Dialysis Skin Medical History: Denies Hx MRSA Past Surgical History: Reports: Hx Oral Surgery - wisdom teeth - Immunizations Immunizations up to date: Yes Hx Diphtheria, Pertussis, Tetanus Vaccination: Yes - 2013 Vertical Provider Document - CONSTITUTIONAL Agree With Documented VS: Yes Exam Limitations: No Limitations General Appearance: WD/WN, No Apparent Distress - INFECTION CONTROL TRAVEL OUTSIDE OF THE [place] IN LAST 30 DAYS: No - HEENT HEENT: Atraumatic, Normocephalic, Pharyngeal Exudate, Pharyngeal Tenderness, Pharyngeal Erythema. negative: Tympanic Membrane Red, Tympanic Membrane Bulging - NECK Neck: Lymphadenopathy-Left, Lymphadenopathy-Right - RESPIRATORY Respiratory: Breath Sounds Normal, No Respiratory Distress, Chest Non-Tender - CARDIOVASCULAR Cardiovascular: Regular Rate, Regular Rhythm, No Murmur - BACK Back: Normal Inspection - MUSCULOSKELETAL/EXTREMETIES Musculoskeletal/Extremeties: NOEL FROM - NEURO Level of Consciousness: Awake, Alert, Appropriate Motor/Sensory: No Motor Deficit - DERM Integumentary: Warm, Dry, No Rash Course - Re-evaluation Re-evalutation: 09/06/18 16:57 Patient able to manage oral secretions, no concern for peritonsillar abscess. Good return precautions given. - Vital Signs Vital signs: Temp Pulse Resp BP Pulse Ox 97.8 F 87 14 145/68 H 100 09/06/18 16:21 09/06/18 16:21 09/06/18 16:21 09/06/18 16:21 09/06/18 16:21 Discharge - Discharge Clinical Impression: Tonsillitis Condition: Stable Disposition: HOME, SELF-CARE Instructions: Corticosteroid Medication ([facility]), Sore Throat ([facility]), Tonsillitis ( [facility]) Additional Instructions: Return immediately for any new or worsening symptoms Followup with your primary care provider, call tomorrow to make a followup appointment Prescriptions: Naproxen [Naprosyn 250 Nmg Tablet] 1 tab PO BID #14 tablet Forms: Return to Work Referrals: [facility] [Provider Group] - Follow up as needed
== END 2018-09-06 17:12 | disposition home or self-care (01) ==
LOC: ER 16:16
DX: J03.90 Acute tonsillitis, unspecified (principal); R51 Headache
CPT/HCPCS: 99282; 96372; J3490; J0561

== ENCOUNTER 2018-09-27 08:40 | Emergency (ER) | payer SELFPAY ==
[2018-09-27] MEDS ORDERED: GUAIFENESIN 600 MG TABLET.SA PO ONE (09:38)
[2018-09-27] MEDS ORDERED: PSEUDOEPHEDRINE HCL 30 MG TABLET PO ONE (09:38)
[2018-09-27] MEDS ORDERED: LORATADINE 10 MG TABLET PO ONE (09:38)
[2018-09-27] MEDS ORDERED: IBUPROFEN 800 MG TABLET PO ONE (09:38)
--- NOTE | 2018-09-27 09:45 | ER Document Report ---
ED ENT - General Chief Complaint: Cold Symptoms Stated Complaint: SORE THROAT,HEADACHE,EAR PAIN Time Seen by Provider: 09/27/18 09:31 Mode of Arrival: Ambulatory Information source: Patient Notes: The 8-year-old female presents to ED of cough cough cold congestion sore throat with ear pain and sinus pressure with a headache since yesterday. Patient denies any fevers. She states she has a nonproductive cough. She denies any nausea or vomiting or diarrhea. Patient is alert oriented respirations regular and unlabored speaking in full sentences walking with a even steady gait. TRAVEL OUTSIDE OF THE [place] IN LAST 30 DAYS: No - HPI Patient complains to provider of: Ear problem, Nose problem, Throat problem Onset: Yesterday Onset/Duration: Gradual Quality of pain: Achy Severity: Moderate Pain Level: 3 Location of pain: Nose, Sinus, Throat Associated symptoms: Congestion, Cough, Runny nose, Sinus pain, Sinus drainage, Sore throat Similar symptoms previously: Yes Recently seen / treated by doctor: No - Related Data Allergies/Adverse Reactions: No Known Allergies Allergy (Verified 09/27/18 08:47) Past Medical History - General Information source: Patient - Social History Smoking Status: Never Smoker Cigarette use (# per day): No Chew tobacco use (# tins/day): No Smoking Education Provided: No Frequency of alcohol use: Social Drug Abuse: None Occupation: [employer] Family History: Reviewed & Not Pertinent, Arthritis, CAD, DM, Hyperlipidemia, Hypertension, Thyroid Disfunction Patient has suicidal ideation: No Patient has homicidal ideation: No - Past Medical History Cardiac Medical History: Reports: None Pulmonary Medical History: Reports: None EENT Medical History: Reports: None Neurological Medical History: Reports: None Endocrine Medical History: Reports: None Renal/ Medical History: Reports: None Malignancy Medical History: Reports: None GI Medical History: Reports: None Musculoskeletal Medical History: Reports None Skin Medical History: Reports None Psychiatric Medical History: Reports: None Traumatic Medical History: Reports: None Infectious Medical History: Reports: None Past Surgical History: Reports: Hx Oral Surgery - wisdom teeth - Immunizations Immunizations up to date: Yes Hx Diphtheria, Pertussis, Tetanus Vaccination: Yes - 2012 Review of Systems - Review of Systems Constitutional: Recent illness EENT: Ear pain, Nose congestion, Nose discharge, Sinus pressure, Sinus discharge , Throat pain Cardiovascular: No symptoms reported Respiratory: Cough Gastrointestinal: No symptoms reported Genitourinary: No symptoms reported Female Genitourinary: No symptoms reported Musculoskeletal: No symptoms reported Skin: No symptoms reported Hematologic/Lymphatic: No symptoms reported Neurological/Psychological: No symptoms reported -: Yes All other systems reviewed and negative Physical Exam - Vital signs Vitals: Temp Pulse Resp BP Pulse Ox 98.1 F 82 18 155/62 H 99 09/27/18 08:51 09/27/18 08:51 09/27/18 08:51 09/27/18 08:51 09/27/18 08:51 Interpretation: Normal - General General appearance: Appears well, Alert - HEENT Head: Normocephalic, Atraumatic Eyes: Normal Pupils: PERRL Ears: Normal External canal: Normal Tympanic membrane: Normal Sinus: Normal Nasal: Purulent discharge, Swelling Mouth/Lips: Normal Mucous membranes: Normal Pharynx: Post nasal drainage Neck: Normal - Respiratory Respiratory status: No respiratory distress Chest status: Nontender Breath sounds: Nonproductive cough Chest palpation: Normal - Cardiovascular Rhythm: Regular Heart sounds: Normal auscultation Murmur: No - Abdominal Inspection: Normal Distension: No distension Bowel sounds: Normal Tenderness: Nontender Organomegaly: No organomegaly - Back Back: Normal, Nontender - Extremities General upper extremity: Normal inspection, Nontender, Normal color, Normal ROM , Normal temperature General lower extremity: Normal inspection, Nontender, Normal color, Normal ROM , Normal temperature, Normal weight bearing. No: Ruben's sign - Neurological Neuro grossly intact: Yes Cognition: Normal Orientation: AAOx4 Denis Coma Scale Eye Opening: Spontaneous Denis Coma Scale Verbal: Oriented Denis Coma Scale Motor: Obeys Commands Denis Coma Scale Total: 15 Speech: Normal Motor strength normal: LUE, RUE, LLE, RLE Sensory: Normal - Psychological Associated symptoms: Normal affect, Normal mood - Skin Skin Temperature: Warm Skin Moisture: Dry Skin Color: Normal Course - Re-evaluation Re-evalutation: 09/27/18 15:29 Test was negative. Discussed with patient. Patient's assessment consistent with an upper respiratory infection with a viral sore throat. After performing a Medical Screening Examination, I estimate there is LOW risk for ACUTE CORONARY SYNDROME, RESPIRATORY FAILURE, SEPSIS OR MENINGITIS, thus I consider the discharge disposition reasonable. I have reevaluated this patient multiple times and no significant life threatening changes are noted. The patient and I have discussed the diagnosis and risks, and we agree with discharging home with close follow-up. We also discussed returning to the Emergency Department immediately if new or worsening symptoms occur. We have discussed the symptoms which are most concerning (e.g., changing or worsening pain, trouble swallowing or breathing, neck stiffness, fever) that necessitate immediate return. - Vital Signs Vital signs: Temp Pulse Resp BP Pulse Ox 98.3 F 81 18 139/78 H 99 09/27/18 09:45 09/27/18 09:45 09/27/18 09:45 09/27/18 09:45 09/27/18 09:45 Discharge - Discharge Clinical Impression: Viral sore throat URI (upper respiratory infection) Qualifiers: URI type: unspecified URI Qualified Code(s): J06.9 - Acute upper respiratory infection, unspecified Condition: Stable Disposition: HOME, SELF-CARE Instructions: Family Physicians / Practices Additional Instructions: SORE THROAT: Sore throats may be caused by viruses, bacteria, or fungi. Most are due to a virus, and must get better on their own. Bacterial sore throats, particularly those due to "strep," need treatment with antibiotics. If an antibiotic is prescribed, be sure to take the medication for a full 10 days. Failure to take the antibiotic can result in complications such as rheumatic fever. Sometimes, an injection of antibiotics is given instead of pills or liquid. This single "shot" is equal in effectiveness to the oral medication. To relieve symptoms, take acetaminophen for pain. Sip clear liquids frequently, or eat popsicles or ice chips. Anesthetic sprays or lozenges may help. Make sure the air in the room is not too dry. Avoid using decongestants or antihistamines. Call the doctor if there is no improvement in two days, or if you have difficulty breathing, increasing throat pain, high fever, rash, or frequent vomiting. UPPER RESPIRATORY ILLNESS: You have a viral infection of the respiratory passages -- a "cold." This common infection causes nasal congestion, drainage, and often sore throat and cough. It is highly contagious. The disease usually lasts about 10 to 14 days. There is no "cure" for the viral infection -- it must run its course. If there is a complication, such as bacterial infection in the nose, sinuses, middle ear, or bronchial tubes, antibiotics may be required. The antibiotics won't affect the virus. Drink plenty of fluids. A humidifier may help. An expectorant medication or decongestant may make you more comfortable. Use acetaminophen or ibuprofen for fever or aches. See the doctor if fever persists over two days, if there is any significant worsening of your symptoms, or if you simply fail to improve as expected. DECONGESTANT MEDICATION: A decongestant medicine has been suggested. Often this medicine is combined in the same tablet with an antihistamine or expectorant. This type of medicine is helpful in treating a bad cold or sinus condition, as well as in treatment of the nasal congestion of hay fever. It is not of much benefit for lung infections. Decongestant medicines are related to stimulants. They can cause an increase in blood pressure and heart rate. Persons with heart disease and high blood pressure should not take decongestants without discussing this with the physician. If you develop palpitations, chest pain, headache, or tremors, stop the medicine and consult your physician. COUGH-SUPPRESSANT & EXPECTORANT MEDICATION: You are to use a cough medication as needed for relief of symptoms. This medicine is a combination of an expectorant (to make the mucous thinner and more easily "coughed up") and a cough suppressant (to reduce the frequency of coughing). The cough-suppressant medicine is related to narcotics. You may experience mild nausea and sleepiness. Some patients who are very sensitive to narcotics may have stomach pain from this medicine. Taking the medicine with food reduces these side effects. Do not drive or work with machinery until you know how this medicine affects you. The expectorant should have no side effects. Iodine-containing expectorants (such as organidin) should not be taken by persons with active thyroid disease unless approved by your doctor. Call the doctor if you develop shortness of breath, hives, rash, itching, lightheadedness, or severe nausea and vomiting. USE OF ACETAMINOPHEN (Tylenol): Acetaminophen may be taken for pain relief or fever control. It's much safer than aspirin, offering a wider range of "safe" dosages. It is safe during . Some brand names are Tylenol, Panadol, Datril, Anacin 3, Tempra, and Liquiprin. Acetaminophen can be repeated every four hours. The following are maximum recommended dosages: >89 pounds or adults 650 mg to 900 mg Acetaminophen can be repeated every four hours. Maximum dose not to exceed 4000 mg a day. He was treated in the emergency room with Claritin 10 mg, Sudafed 30 mg, Mucinex 600 mg, and ibuprofen 800 mg, these are all [id number] medications except for the ibuprofen you would get by the 200 mg over-the- counter and you just take 4. Other medications that can help with your cough and cold symptoms are Flonase which is [id number] use according to the box instructions. Chloraseptic spray will help with your sore throat. Salt and soda solution gargles will help with your sore throat. Salt and soda solution 1 quart of water 1 tablespoon of salt 1 teaspoon of baking soda Mixed 3 ingredients together and boil for 1 minute Placed in a covered quart jar Use 1/2 ounce of cold solution to gargle 3 times a day FOLLOW-UP CARE: If you have been referred to a physician for follow-up care, call the physician s office for an appointment as you were instructed or within the next two days. If you experience worsening or a significant change in your symptoms, notify the physician immediately or return to the Emergency Department at any time for re-evaluation. Prescriptions: Ibuprofen [Motrin 600 mg Tablet] 600 mg PO Q8HP PRN #30 tablet PRN Reason: Forms: Elevated Blood Pressure, Return to Work
[2018-09-27 09:47] VITALS: BP 139/78
== END 2018-09-27 09:50 | disposition home or self-care (01) ==
LOC: ER 08:40
DX: J06.9 Acute upper respiratory infection, unspecified (principal); J02.9 Acute pharyngitis, unspecified; R51 Headache; H92.09 Otalgia, unspecified ear
CPT/HCPCS: 87070; 87880; 99283

== ENCOUNTER 2018-10-12 15:35 | Emergency (ER) | payer SELFPAY ==
[2018-10-12] MEDS ORDERED: MORPHINE SULFATE 10 MG/ML INJ IM ONE (17:11)
--- NOTE | 2018-10-12 17:13 | ER Document Report ---
ED General - General Chief Complaint: Abdominal Pain Stated Complaint: ABDOMINAL PAIN Time Seen by Provider: 10/12/18 17:06 Mode of Arrival: Ambulatory Information source: Patient Notes: 28-year-old female with history of ovarian cyst presents with complaint of lower abdominal cramping that started 1 day prior to arrival. Pain is located bilaterally described as cramping. Patient denies associated nausea, vomiting, dysuria, hematuria, vaginal discharge, chance of . Her last menstrual period was September 27, 2019. She states that she has not been sexually active recently and has had STd testing which was negative. TRAVEL OUTSIDE OF THE [place] IN LAST 30 DAYS: No - HPI Onset: Yesterday Onset/Duration: Gradual, Persistent Quality of pain: Cramping Severity: Mild Associated symptoms: Other - Denies vaginal discharge. denies: Chest pain, Drooling, Fever, Nausea, Vomiting, Shortness of breath Exacerbated by: Denies Relieved by: Denies Similar symptoms previously: Yes Recently seen / treated by doctor: No - Related Data Allergies/Adverse Reactions: No Known Allergies Allergy (Verified 10/12/18 15:36) Past Medical History - General Information source: Patient - Social History Smoking Status: Never Smoker Chew tobacco use (# tins/day): No Frequency of alcohol use: Social Drug Abuse: None Lives with: Family Family History: Reviewed & Not Pertinent, Arthritis, CAD, DM, Hyperlipidemia, Hypertension, Thyroid Disfunction Patient has suicidal ideation: No Patient has homicidal ideation: No Renal/ Medical History: Reports: Hx Ovarian Cysts. Denies: Hx Peritoneal Dialysis Past Surgical History: Comment Only: Hx Oral Surgery - wisdom teeth - Immunizations Immunizations up to date: Yes Hx Diphtheria, Pertussis, Tetanus Vaccination: Yes - 2012 Review of Systems - Review of Systems Notes: REVIEW OF SYSTEMS: CONSTITUTIONAL : Denies fever, chills, or sweats. Denies recent illness. Denies weight loss, recent hospitalizations. EENT: Denies visual changes, eye pain. Denies sore throat, oral lesions, difficulty swallowing. CARDIOVASCULAR: Denies chest pain. Denies palpitations. Denies lower extremity edema. RESPIRATORY: Denies cough. Denies shortness of breath, wheezing. GASTROINTESTINAL: Denies abdominal distention. Denies nausea, vomiting, or diarrhea. Denies blood in vomitus, stools, or per rectum. Denies black, tarry stools. Denies constipation. GENITOURINARY: Denies difficulty urinating, painful urination, frequency, blood in urine, or vaginal discharge. MUSCULOSKELETAL: Denies back or neck pain or stiffness. Denies joint pain or swelling. SKIN: Denies rash, lesions or sores. HEMATOLOGIC : Denies easy bruising or bleeding. LYMPHATIC: Denies swollen glands. NEUROLOGICAL: Denies confusion or altered mental status. Denies loss of consciousness. Denies dizziness or lightheadedness. Denies headache. Denies weakness or paralysis. Denies problems difficulty with ambulation, slurred speech. Denies sensory loss, numbness, or tingling. Denies seizures. PSYCHIATRIC: Denies anxiety or stress. Denies depression, suicidal ideation, or homicidal ideation. Denies visual or auditory hallucinations. Physical Exam - Vital signs Vitals: Temp Pulse Resp BP Pulse Ox 97.8 F 75 16 147/71 H 99 10/12/18 16:05 10/12/18 16:05 10/12/18 16:05 10/12/18 16:05 10/12/18 16:05 - Notes Notes: PHYSICAL EXAMINATION: GENERAL: Well-appearing, well-nourished and in no acute distress. HEAD: Atraumatic, normocephalic. EYES: Pupils equal round and reactive to light, extraocular movements intact, conjunctiva are normal. ENT: Nares patent, oropharynx clear without exudates. Moist mucous membranes. NECK: Normal range of motion, supple without lymphadenopathy LUNGS: Breath sounds clear to auscultation bilaterally and equal. No wheezes rales or rhonchi. HEART: Regular rate and rhythm without murmurs ABDOMEN: Soft, nontender, nondistended abdomen. No guarding, no rebound. No masses appreciated. Female : deferred Musculoskeletal: Normal range of motion, no pitting or edema. No cyanosis. NEUROLOGICAL: Cranial nerves grossly intact. Normal speech, normal gait. Normal sensory, motor exams PSYCH: Normal mood, normal affect. SKIN: Warm, Dry, normal turgor, no rashes or lesions noted. Course - Re-evaluation Re-evalutation: 10/13/18 16:55 Laboratory 10/12/18 10/12/18 10/12/18 17:19 19:05 19:05 WBC 10.5 RBC 4.50 Hgb 11.4 L Hct 35.9 L MCV 80 MCH 25.4 L MCHC 31.9 L RDW 18.3 H Plt Count 493 H Seg Neutrophils % 49.3 Lymphocytes % 37.9 Monocytes % 9.7 Eosinophils % 2.1 Basophils % 1.0 Absolute Neutrophils 5.2 Absolute Lymphocytes 4.0 Absolute Monocytes 1.0 Absolute Eosinophils 0.2 Absolute Basophils 0.1 Sodium Potassium Chloride Carbon Dioxide Anion Gap BUN Creatinine Est GFR ( Amer) Est GFR (Non-Af Amer) Glucose Calcium Beta HCG, Quant < 2.39 Total Beta HCG NEGATIVE Urine Color YELLOW Urine Appearance SLIGHTLY-CLOUDY Urine pH 5.0 Ur Specific [place] 1.030 Urine Protein NEGATIVE Urine Glucose (UA) NEGATIVE Urine Ketones NEGATIVE Urine Blood NEGATIVE Urine Nitrite NEGATIVE Urine Bilirubin NEGATIVE Urine Urobilinogen NEGATIVE Ur Leukocyte Esterase NEGATIVE Urine WBC (Auto) 1 Urine RBC (Auto) 1 Squamous Epi Cells Auto 2 Urine Mucus (Auto) RARE Urine Ascorbic Acid NEGATIVE Urine HCG, Qual NEGATIVE 10/12/18 19:05 WBC RBC Hgb Hct MCV MCH MCHC RDW Plt Count Seg Neutrophils % Lymphocytes % Monocytes % Eosinophils % Basophils % Absolute Neutrophils Absolute Lymphocytes Absolute Monocytes Absolute Eosinophils Absolute Basophils Sodium 140.9 Potassium 4.4 Chloride 106 Carbon Dioxide 22 Anion Gap 13 BUN 17 Creatinine 0.59 Est GFR ( Amer) > 60 Est GFR (Non-Af Amer) > 60 Glucose 87 Calcium 9.9 Beta HCG, Quant Total Beta HCG Urine Color Urine Appearance Urine pH Ur Specific [place] Urine Protein Urine Glucose (UA) Urine Ketones Urine Blood Urine Nitrite Urine Bilirubin Urine Urobilinogen Ur Leukocyte Esterase Urine WBC (Auto) Urine RBC (Auto) Squamous Epi Cells Auto Urine Mucus (Auto) Urine Ascorbic Acid Urine HCG, Qual Transvaginal US 10/12/18 17:11 IMPRESSION: There is a left ovarian lesion concerning for ectopic. Is there any clinical evidence of ? Abdomen/Pelvis CT 10/12/18 21:07 IMPRESSION: No acute intra-abdominal abnormality. Temp Pulse Resp BP Pulse Ox 97.6 F 66 18 122/72 100 10/13/18 00:24 10/13/18 00:24 10/13/18 00:24 10/13/18 00:24 10/13/18 00:24 Presents with lower abdominal pain. Vital signs reviewed and stable upon arrival. Patient is afebrile and hypoxic. She does not appear toxic or dehydrated. She is in no acute distress. Previous medical records and nursing notes were reviewed. Unclear source of patient's abdominal pain. Transvaginal ultrasound was ordered due to patient's history of ovarian cysts. This was concerning for ectopic although patient's urine hCG is negative. After speaking to the radiologist hCG quant was obtained and also negative. CT of the abdomen pelvis with and showed no acute intra-abdominal abnormality. Patient was discharged home in stable condition with recommendation to follow-up with her primary care physician. - Vital Signs Vital signs: Temp Pulse Resp BP Pulse Ox 97.6 F 66 18 122/72 100 10/13/18 00:24 10/13/18 00:24 10/13/18 00:24 10/13/18 00:24 10/13/18 00:24 - Laboratory Result Diagrams: 10/12/18 19:05 10/12/18 19:05 Laboratory results interpreted by me: 10/12/18 19:05 Hgb 11.4 L Hct 35.9 L MCH 25.4 L MCHC 31.9 L RDW 18.3 H Plt Count 493 H - Diagnostic Test Radiology reviewed: Image reviewed, Reports reviewed Discharge - Discharge Clinical Impression: Abdominal pain Qualifiers: Abdominal location: lower abdomen, unspecified Qualified Code(s): R10.30 - Lower abdominal pain, unspecified Condition: Good Disposition: HOME, SELF-CARE Instructions: Abdominal Pain ([facility]) Additional Instructions: ABDOMINAL PAIN: There are many causes of abdominal pain. Pain can mean a serious problem requiring surgery (such as appendicitis). It can also be an innocent problem that goes away on its own (such as a viral infection). Often, time must pass to determine the cause of pain. The physician does not feel that hospitalization is necessary, at present. Things may change within the next 24 hours. Call the doctor or come back for re- examination if any problems occur, such as: (1) Pain that becomes more severe, steady, or becomes concentrated in one specific area. Also, pain that is more severe with movement or coughing. (2) Vomiting that persists or becomes more frequent. (3) Blood in the vomitus, urine, or bowel movements. Blood in the stool may have a tarry or black appearance. (4) Shaking chills or fever greater than 100 degrees F. (5) The abdomen becomes more distended or swollen. (6) Bowel movements cease. (7) Failure to improve as expected. NORMAL EXAM AND WORKUP: At this time, your examination and workup show no significant abnormality. No significant abnormal physical findings are noted. All laboratory, EKG, and imaging (x-ray, CT scans, ultrasound) studies that were ordered show no significant abnormality. Although your examination and all studies that were ordered showed no significant abnormal finding, there are no examinations and no studies that are 100% accurate. There is always the possibility that some abnormality could exist and not be detected with physical examination or within the limits and capabilities of laboratory and other studies. You should return or follow up as you were instructed on your visit today for further evaluation if your symptoms do not resolve. PAIN MEDICATION INJECTION: You have received an injection of a pain medication. You should experience significant pain relief within 45 minutes. This drug is a narcotic -- it will impair your judgement, slow your reaction time and make you sleepy (as well as relieve your pain). Narcotics also can cause nausea. You should not drive, work with machinery, or perform any task requiring mental alertness until all effects of the medication are gone -- six to eight hours. Do not take any alcohol, or sedatives, and do not take any other medication without checking with your physician. ANTINAUSEA MEDICATION: You have been given a medication to suppress nausea and vomiting. This type of medication can be given as a shot, pill, or suppository. It will usually last for many hours. Pills and shots usually last six to eight hours, suppositories last about 12 hours. For the typical illness, only one or two doses of the medication may be necessary. Mild lightheadedness may occur. This type of medicine can cause drowsiness. Do not drive or operate dangerous machinery while under its influence. Do not mix with alcohol. See your doctor at once if you have muscle spasms or tightness, or uncontrollable motions (particularly of the neck, mouth, or jaw). Persistent vomiting or severe lightheadedness should also be evaluated by the physician. FOLLOW-UP CARE: If you have been referred to a physician for follow-up care, call the physicians office for an appointment as you were instructed or within the next two days. If you experience worsening or a significant change in your symptoms, notify the physician immediately or return to the Emergency Department at any time for re-evaluation. FOLLOW-UP CARE: You should return for re-evaluation in 12 hours. This follow-up visit is important. If you are unable to return, or feel that the return visit is unnecessary, please call us. Forms: Return to Work
[2018-10-12 18:02] LABS: APPEARANCE,URINE SLIGHTLY-CLOUDY; BILIRUBIN,URINE NEGATIVE (NEGATIVE); COLOR,URINE YELLOW; GLUCOSE, URINE NEGATIVE (NEGATIVE); KETONES,URINE NEGATIVE (NEGATIVE); LEUKOCYTE ESTERASE,URINE NEGATIVE (NEGATIVE); NITRITE,URINE NEGATIVE (NEGATIVE); PROTEIN,URINE NEGATIVE (NEGATIVE); UROBILINOGEN,URINE NEGATIVE mg/dL (<2.0)
--- NOTE | 2018-10-12 18:56 | RADIOLOGY REPORT (SQ) ---
EXAM DESCRIPTION: U/S NON OB PEL TV W/DOPPLER COMPLETED DATE/TIME: 10/12/2018 6:12 pm REASON FOR STUDY: Pelvic pain, history of ovarian cyst LMP 09/24/2018 COMPARISON: 08/22/2012 TECHNIQUE: Dynamic and static grayscale images acquired of the pelvis via transvaginal approach and recorded on PACS. Additional selected color Doppler and spectral images recorded. LIMITATIONS: None. FINDINGS: UTERUS: Retroflexed uterus. No mass. ENDOMETRIAL STRIPE: Prominent. CERVIX: 2.1 cm. RIGHT OVARY AND DOPPLER: Ovary not seen. LEFT OVARY AND DOPPLER: Normal size. No worrisome masses. Normal arterial vascular flow without evide nce for torsion. There is a 2.3 cm complex area associated with the left ovary comprising a thick-wa lled lesion with small cystic areas centrally. FREE FLUID: None noted. OTHER: No other significant finding. MEASUREMENTS: UTERUS: 7.5 x 5.6 x 5.4 cm. ENDOMETRIAL STRIPE: 26 mm. RIGHT OVARY: Ovary not seen. LEFT OVARY: 2.5 x 3.6 x 3.1 cm. IMPRESSION: There is a left ovarian lesion concerning for ectopic. Is there any clinical evidence o f ? COMMENT: Pertinent findings on the imaging study reported as a CRITICAL RESULT to ANTHONY Fuentes t18:50 on 10/12/2018. TECHNICAL DOCUMENTATION: JOB ID: [id number] [employer]- All Rights Reserved [id number] Reading location - IP/workstation name: [email or web address]
[2018-10-12] MEDS ORDERED: ACETAMINOPHEN 325 MG TABLET PO ONE (20:36)
--- NOTE | 2018-10-12 20:37 | ER Document Report ---
ED General - General Mode of Arrival: Ambulatory TRAVEL OUTSIDE OF THE [place] IN LAST 30 DAYS: No <KATHI JOE - Last Filed: 10/13/18 00:11> <ANTHONY AVILES - Last Filed: 10/13/18 20:21> - General Chief Complaint: Abdominal Pain Stated Complaint: ABDOMINAL PAIN Time Seen by Provider: 10/12/18 17:06 Notes: 28-year-old female with history of ovarian cyst presents with complaint of lower abdominal cramping that started 1 day prior to arrival. Pain is located bilaterally described as cramping. Patient denies associated nausea, vomiting, dysuria, hematuria, vaginal discharge, chance of . Her last menstrual period was September 27, 2019. She states that she has not been sexually active recently and has had STD testing which was negative. She denies any fevers, chills. (KATHI JOE) - Related Data Allergies/Adverse Reactions: No Known Allergies Allergy (Verified 10/12/18 15:36) Past Medical History - General Information source: Patient - Social History Smoking Status: Never Smoker Chew tobacco use (# tins/day): No Frequency of alcohol use: Social Drug Abuse: None Lives with: Family Family History: Reviewed & Not Pertinent, Arthritis, CAD, DM, Hyperlipidemia, Hypertension, Thyroid Disfunction Patient has suicidal ideation: No Patient has homicidal ideation: No Renal/ Medical History: Reports: Hx Ovarian Cysts. Denies: Hx Peritoneal Ydui lysis Past Surgical History: Comment Only: Hx Oral Surgery - wisdom teeth - Immunizations Immunizations up to date: Yes Hx Diphtheria, Pertussis, Tetanus Vaccination: Yes - 2012 <KATHI JOE - Last Filed: 10/13/18 00:11> Review of Systems - Review of Systems Constitutional: See HPI EENT: No symptoms reported Cardiovascular: No symptoms reported Respiratory: No symptoms reported Gastrointestinal: See HPI Genitourinary: See HPI Female Genitourinary: See HPI Musculoskeletal: No symptoms reported Skin: No symptoms reported Hematologic/Lymphatic: No symptoms reported Neurological/Psychological: No symptoms reported <KATHI JOE - Last Filed: 10/13/18 00:11> Physical Exam <KATHI JOE - Last Filed: 10/13/18 00:11> - Vital signs Vitals: Temp Pulse Resp BP Pulse Ox 97.8 F 75 16 147/71 H 99 10/12/18 16:05 10/12/18 16:05 10/12/18 16:05 10/12/18 16:05 10/12/18 16:05 - Notes Notes: Reviewed vital signs and nursing note as charted by RN. CONSTITUTIONAL: Well-appearing, well-nourished, acting appropriately for age HEAD: Normocephalic, atraumatic, no swelling EYES: PERRL, Conjunctivae clear, no drainage, EOMI, no scleral icterus ENT: External ears without lesions, External auditory canal is patent, airway patent, mucous membranes pink and moist NECK: Supple, no cervical lymphadenopathy, no masses CARD: Regular rate and rhythm, no murmurs, no rubs, no gallops, capillary refill < 2 seconds, symmetric pulses RESP: The lungs are clear to auscultation bilaterally, no wheezing, no rales, no rhonchi. Respiratory rate and effort are normal, normal chest excursion. No respiratory distress, no retractions, no stridor, no nasal flaring, no accessory muscle use. ABD/GI: Normal bowel sounds, non-distended, soft, tenderness to palpation bilateral lower abdomen, no rebound, no guarding, no palpable organomegaly EXT: Normal ROM in all joints, non-tender to palpation, no effusions, no edema SKIN: Normal color for age and race, warm, dry, good turgor, no acute lesions noted NEURO: No facial asymmetry, moves all extremities equally, motor and sensory function intact (KATHI JOE) Course - Laboratory Result Diagrams: 10/12/18 19:05 10/12/18 19:05 <KATHI JOE - Last Filed: 10/13/18 00:11> - Laboratory Result Diagrams: 10/12/18 19:05 10/12/18 19:05 <ANTHONY AVILES - Last Filed: 10/13/18 20:21> - Re-evaluation Re-evalutation: 10/12/18 20:35 28-year-old female presents to the emergency department with abdominal pain that started last night. She complains of bilateral adnexal pain. LMP was 09/27/18. No recent sexual activity. Transvaginal ultrasound performed and concerning for mass in the right fallopian tube. She does have a negative quantitative hCG. 10/12/18 21:08 Ultrasound was concerning for possible ectopic based on radiologist read. A quantitative hCG was drawn which was negative effectively ruling out ectopic . Right ovary was not visualized, patient's pain is greater ri ght versus left. At this time I discussed with the patient the findings thus far and told her that we would like to get a CT abdomen/pelvis with IV contrast to better ascertain if there is any free fluid in the abdomen or any other pathology. She agreed with the plan. Plan is to give her Dilaudid 0.5 mg IM 1 time for pain control. She is not driving. 10/13/18 00:11 CT negative for any intra-abdominal pathology. No free fluid noted. Pain could be related to an ovarian cyst. With negative patient does not have ectopic , transvaginal ultrasound did not reveal a TOA, and with negative CT there is no life-threatening process at this time and patient is stable to discharge home. (KATHI JOE) 10/13/18 20:20 I personally evaluated the patient and agree with the treatment and disposition. (ANTHONY AVILES) - Vital Signs Vital signs: Temp Pulse Resp BP Pulse Ox 97.6 F 66 18 122/72 100 10/13/18 00:24 10/13/18 00:24 10/13/18 00:24 10/13/18 00:24 10/13/18 00:24 - Laboratory Laboratory results interpreted by me: 10/12/18 19:05 Hgb 11.4 L Hct 35.9 L MCH 25.4 L MCHC 31.9 L RDW 18.3 H Plt Count 493 H Discharge <KATHI JOE - Last Filed: 10/13/18 00:11> <ANTHONY AVILES - Last Filed: 10/13/18 20:21> - Discharge Clinical Impression: Abdominal pain Qualifiers: Abdominal location: lower abdomen, unspecified Qualified Code(s): R10.30 - Low er abdominal pain, unspecified Condition: Good Disposition: HOME, SELF-CARE Instructions: Abdominal Pain ([facility]) Additional Instructions: ABDOMINAL PAIN: There are many causes of abdominal pain. Pain can mean a serious problem requiring surgery (such as appendicitis). It can also be an innocent problem that goes away on its own (such as a viral infection). Often, time must pass to determine the cause of pain. The physician does not feel that hospitalization is necessary, at present. Things may change within the next 24 hours. Call the doctor or come back for re- examination if any problems occur, such as: (1) Pain that becomes more severe, steady, or becomes concentrated in one specific area. Also, pain that is more severe with movement or coughing. (2) Vomiting that persists or becomes more frequent. (3) Blood in the vomitus, urine, or bowel movements. Blood in the stool may have a tarry or black appearance. (4) Shaking chills or fever greater than 100 degrees F. (5) The abdomen becomes more distended or swollen. (6) Bowel movements cease. (7) Failure to improve as expected. NORMAL EXAM AND WORKUP: At this time, your examination and workup show no significant abnormality. No significant abnormal physical findings are noted. All laboratory, EKG, and imaging (x-ray, CT scans, ultrasound) studies that were ordered show no significant abnormality. Although your examination and all studies that were ordered showed no significant abnormal finding, there are no examinations and no studies that are 100% accurate. There is always the possibility that some abnormality could exist and not be detected with physical examination or within the limits and capabilities of laboratory and other studies. You should return or follow up as you were instructed on your visit today for further evaluation if your symptoms do not resolve. PAIN MEDICATION INJECTION: You have received an injection of a pain medication. You should experience significant pain relief within 45 minutes. This drug is a narcotic -- it will impair your judgement, slow your reaction time and make you sleepy (as well as relieve your pain). Narcotics also can cause nausea. You should not drive, work with machinery, or perform any task requiring mental alertness until all effects of the medication are gone -- six to eight h ours. Do not take any alcohol, or sedatives, and do not take any other medication without checking with your physician. ANT[place]SEA MEDICATION: You have been given a medication to suppress nausea and vomiting. This type of medication can be given as a shot, pill, or suppository. It will usually last for many hours. Pills and shots usually last six to eight hours, suppositories last about 12 hours. For the typical illness, only one or two doses of the medication may be necessary. Mild lightheadedness may occur. This type of medicine can cause drowsiness. Do not drive or operate dangerous machinery while under its influence. Do not mix with alcohol. See your doctor at once if you have muscle spasms or tightness, or uncontrollable motions (particularly of the neck, mouth, or jaw). Persistent vomiting or severe lightheadedness should also be evaluated by the physician. FOLLOW-UP CARE: If you have been referred to a physician for follow-up care, call the physicians office for an appointment as you were instructed or within the next two days. If you experience worsening or a significant change in your symptoms, notify the physician immediately or return to the Emergency Department at any time for re-evaluation. FOLLOW-UP CARE: You should return for re-evaluation in 12 hours. This follow-up visit is important. If you are unable to return, or feel that the return visit is unnecessary, please call us. Forms: Return to Work
[2018-10-12] MEDS ORDERED: HYDROMORPHONE HCL INJ/PF 2 MG/ML AMPULE IM ONE (21:06)
[2018-10-12 21:20] LABS: ANION GAP 13 (5-19); BLOOD UREA NITROGEN 17 mg/dL (7-20); CALCIUM 9.9 mg/dL (8.4-10.2); CARBON DIOXIDE 22 mmol/L (22-30); CHLORIDE 106 mmol/L (98-107); GLUCOSE 87 mg/dL (75-110); POTASSIUM 4.4 mmol/L (3.6-5.0); SODIUM 140.9 mmol/L (137-145)
[2018-10-12 21:32] LABS: ABSOLUTE BASOPHILS # (AUTO) 0.1 10^3/uL (0.0-0.2); ABSOLUTE EOSINOPHILS # (AUTO) 0.2 10^3/uL (0.0-0.6); ABSOLUTE NEUT (AUTO) 5.2 10^3/uL (1.7-8.2); EOSINOPHILS % (AUTO) 2.1 % (0-6); HEMATOCRIT 35.9 % (36.0-47.0); HEMOGLOBIN 11.4 g/dL (12.0-15.5); LYMPHOCYTES % (AUTO) 37.9 % (13-45); MEAN CORPUSCULAR HEMOGLOBIN 25.4 pg (27.0-33.4); MEAN CORPUSCULAR HGB CONC 31.9 g/dL (32.0-36.0); MEAN CORPUSCULAR VOLUME 80 fl (80-97); MONOCYTES % (AUTO) 9.7 % (3-13); PLATELET COUNT 493 10^3/uL (150-450); RED CELL DISTRIBUTION WIDTH 18.3 % (11.5-14.0); SEGMENTED NEUTROPHILS % (AUTO) 49.3 % (42-78); TOTAL CELLS COUNTED % (AUTO) 100 %; WHITE BLOOD COUNT 10.5 10^3/uL (4.0-10.5)
--- NOTE | 2018-10-12 23:20 | RADIOLOGY REPORT (SQ) ---
EXAM DESCRIPTION: CT ABDOMEN PELVIS WITH IV CONTRAST COMPLETED DATE/TME: 10/12/2018 21:07 CLINICAL HISTORY: 28 years, Female, fall, rib fx, RUQ and side pain TECHNIQUE: Contiguous axial CT images of the abdomen and pelvis were obtained. Sagittal and coronal reformats were reviewed. This exam was performed according to our departmental dose-optimization program, which includes automated exposure control, adjustment of the mA and/or kV according to patient size and/or use of iterative reconstruction technique. FINDINGS: Lung bases: Clear. Liver:Unremarkable. No focal liver lesion. Gallbladder:Unremarkable. No gallstones. No gallbladder wall thickening or pericholecystic fluid. Spleen:Unremarkable Pancreas: Pancreas is unremarkable. Adrenal glands:Within normal limits. Kidneys/ureters:Within normal limits Vascular structures: within normal limits Peritoneum: Small amount of pelvic fluid. Lymph nodes: No abnormal lymph nodes. Stomach/small bowel/colon: Stomach is unremarkable. Small bowel is unremarkable. Colon is unremarkable. Appendix: No evidence of appendicitis. Bladder:Unremarkable. Pelvic organs: No acute abnormality Bones: No acute osseous abnormality. Soft tissues: Unremarkable.. IMPRESSION: No acute intra-abdominal abnormality.
[2018-10-13] MEDS ORDERED: HYDROCODONE/ACETAMINOPHEN 5-325 MG (6 TAB/ER DISP) PO PRN (00:13)
[2018-10-13 00:26] VITALS: BP 122/72
== END 2018-10-13 00:33 | disposition home or self-care (01) ==
LOC: ER 15:35
DX: R10.30 Lower abdominal pain, unspecified (principal)
CPT/HCPCS: 99284; 96372; 36415; 84702; 85025; 81025; 80048; 81001; 76830; 93976; 74177; J2270; J1170

== ENCOUNTER 2018-11-25 20:14 | Emergency (ER) | payer BC ==
[2018-11-25] MEDS ORDERED: IBUPROFEN 600 MG TABLET PO ONE (21:14)
[2018-11-25] MEDS ORDERED: ACETAMINOPHEN 325 MG TABLET PO ONE (21:14)
--- NOTE | 2018-11-25 21:17 | ER Document Report ---
HPI - HPI Time Seen by Provider: 11/25/18 21:13 Pain Level: 4 Context: Patient is a 28-year-old female who presents to the emergency department with a chief complaint of bilateral feet swelling and right ankle pain. Her pain is a sore pain. She states that she rolled her ankle couple weeks ago and went to an urgent care. No x-rays were done at the urgent care. She states that she continues to have pain. [place] the [employer] and is on her feet all day. She does not wear compression hose to help with her swelling. - CONSTITUTIONAL Constitutional: DENIES: Fever, Chills - NEURO Neurology: DENIES: Headache - RESPIRATORY Respiratory: DENIES: Trouble Breathing - GASTROINTESTINAL Gastrointestinal: DENIES: Abdominal Pain - REPRODUCTIVE Reproductive: DENIES: : - MUSCULOSKELETAL Musculoskeletal: REPORTS: Extremity pain - Bilateral feet; right ankle - DERM Skin Color: Normal Past Medical History - General Information source: Patient - Social History Smoking Status: Never Smoker Chew tobacco use (# tins/day): No Frequency of alcohol use: Occasional Drug Abuse: None Family History: Reviewed & Not Pertinent, Arthritis, CAD, DM, Hyperlipidemia, Hypertension, Thyroid Disfunction Patient has suicidal ideation: No Patient has homicidal ideation: No Renal/ Medical History: Reports: Hx Ovarian Cysts. Denies: Hx Peritoneal Dialysis Past Surgical History: Comment Only: Hx Oral Surgery - wisdom teeth - Immunizations Immunizations up to date: Yes Hx Diphtheria, Pertussis, Tetanus Vaccination: Yes - 2013 [facility] Provider Document - CONSTITUTIONAL Agree With Documented VS: Yes - INFECTION CONTROL TRAVEL OUTSIDE OF THE [place] IN LAST 30 DAYS: No - HEENT HEENT: Atraumatic - NECK Neck: Normal Inspection - RESPIRATORY Respiratory: No Respiratory Distress - CARDIOVASCULAR Cardiovascular: Regular Rate, Regular Rhythm, No Murmur Pulses: Normal: Radial, Posterior tibial, Dorsalis pedis Notes: 1+ nonpitting edema to bilateral feet - MUSCULOSKELETAL/EXTREMETIES Musculoskeletal/Extremeties: FROM - NEURO Level of Consciousness: Awake, Alert, Appropriate Motor/Sensory: No Motor Deficit - DERM Integumentary: Warm, Dry Course - Re-evaluation Re-evalutation: 11/25/18 21:17 Patient will be sent for an x-ray of her right ankle. I suspect the cause of her swelling in both her feet are due to her being on her feet all day at work. I do not suspect she has any DVT at this time. 11/25/18 22:17 Patient's X-Ray is negative for an acute fracture. She will be given compression hose and given Motrin and Tylenol to help with her pain. Verbal discharge instructions were given to the patient. They verbalized understanding. They are stable for discharge. - Vital Signs Vital signs: Temp Pulse Resp BP Pulse Ox 97.6 F 71 16 131/85 H 100 11/25/18 20:40 11/25/18 20:40 11/25/18 20:40 11/25/18 20:40 11/25/18 20:40 Discharge - Discharge Clinical Impression: Bilateral swelling of feet Right ankle pain Qualifiers: Chronicity: acute Qualified Code(s): M25.571 - Pain in right ankle and joints of right foot Condition: Stable Disposition: HOME, SELF-CARE Additional Instructions: You were seen in the emergency department for right ankle pain and swelling. You have been given compression hose. Please wear these when you work. After working, make sure you take the compression hose off. Your x-ray is normal. Please take Motrin 600 mg and Tylenol 1000 mg as needed for the pain. Please follow-up with your primary care provider in regards to this visit.
--- NOTE | 2018-11-25 21:59 | RADIOLOGY REPORT (SQ) ---
3 VIEWS OF THE RIGHT ANKLE HISTORY: Joint pain. COMPARISON: None. FINDINGS: The ankle mortise is preserved on these nonstress views. No acute fracture or dislocation. There is mild overlying soft tissue swelling. No radiopaque foreign body is identified. IMPRESSION: No acute fracture or dislocation.
[2018-11-25 22:39] VITALS: BP 141/74
== END 2018-11-25 22:39 | disposition home or self-care (01) ==
LOC: ER 20:14
DX: M79.89 Other specified soft tissue disorders (principal); M25.571 Pain in right ankle and joints of right foot; X50.9XXA Other and unspecified overexertion or strenuous movements or postures, initial encounter; M79.671 Pain in right foot; M79.672 Pain in left foot
CPT/HCPCS: 99283

== ENCOUNTER 2019-03-05 11:26 | Emergency (ER) | payer BC ==
--- NOTE | 2019-03-05 11:53 | ER Document Report ---
ED Medical Screen (RME) - General Chief Complaint: Breast Problem Stated Complaint: PAIN BELOW RIGHT BREAST Time Seen by Provider: 03/05/19 11:48 Mode of Arrival: Ambulatory Information source: Patient Notes: Patient presents complaining of pain to the area just below her right breast in the right upper quadrant of her abdomen. Patient states pain started yesterday and has become persistent today. Patient states she had similar episode a couple months ago. Patient denies any nausea vomiting diarrhea or fever. I have greeted and performed a rapid initial assessment of this patient. A comprehensive ED assessment and evaluation of the patient, analysis of test results and completion of the medical decision making process will be conducted by additional ED providers. TRAVEL OUTSIDE OF THE [place] IN LAST 30 DAYS: No - Related Data Allergies/Adverse Reactions: No Known Allergies Allergy (Verified 03/05/19 11:28) Past Medical History - Social History Chew tobacco use (# tins/day): No Frequency of alcohol use: Occasional Drug Abuse: None Family history: Reviewed & Not Pertinent Renal/ Medical History: Reports: Hx Ovarian Cysts. Denies: Hx Peritoneal Dialysis Past Surgical History: Comment Only: Hx Oral Surgery - wisdom teeth - Immunizations Immunizations up to date: Yes Hx Diphtheria, Pertussis, Tetanus Vaccination: Yes - 2012 Physical Exam - Vital signs Vitals: Temp Pulse Resp BP Pulse Ox 97.9 F 86 18 165/78 H 97 03/05/19 11:41 03/05/19 11:41 03/05/19 11:41 03/05/19 11:41 03/05/19 11:41 - Abdominal Inspection: Morbidly Obese Tenderness: Tender - Right upper quadrant Course - Vital Signs Vital signs: Temp Pulse Resp BP Pulse Ox 97.9 F 86 18 165/78 H 97 03/05/19 11:41 03/05/19 11:41 03/05/19 11:41 03/05/19 11:41 03/05/19 11:41
[2019-03-05 12:10] LABS: ABSOLUTE BASOPHILS # (AUTO) 0.1 10^3/uL (0.0-0.2); ABSOLUTE EOSINOPHILS # (AUTO) 0.1 10^3/uL (0.0-0.6); ABSOLUTE LYMPHOCYTES (AUTO) 2.7 10^3/uL (0.5-4.7); ABSOLUTE MONOCYTES (AUTO) 0.6 10^3/uL (0.1-1.4); ABSOLUTE NEUT (AUTO) 2.7 10^3/uL (1.7-8.2); BASOPHILS % (AUTO) 0.9 % (0-2); EOSINOPHILS % (AUTO) 1.1 % (0-6); HEMATOCRIT 34.1 % (36.0-47.0); HEMOGLOBIN 10.6 g/dL (12.0-15.5); LYMPHOCYTES % (AUTO) 44.3 % (13-45); MEAN CORPUSCULAR HEMOGLOBIN 24.1 pg (27.0-33.4); MEAN CORPUSCULAR HGB CONC 31.2 g/dL (32.0-36.0); MEAN CORPUSCULAR VOLUME 77 fl (80-97); PLATELET COUNT 530 10^3/uL (150-450); RED BLOOD COUNT 4.42 10^6/uL (3.72-5.28); RED CELL DISTRIBUTION WIDTH 17.4 % (11.5-14.0); SEGMENTED NEUTROPHILS % (AUTO) 44.7 % (42-78); TOTAL CELLS COUNTED % (AUTO) 100 %; WHITE BLOOD COUNT 6.1 10^3/uL (4.0-10.5)
[2019-03-05 12:25] LABS: ALANINE AMINOTRANSFERASE 22 U/L (9-52); ALBUMIN 4.2 g/dL (3.5-5.0); ALKALINE PHOSPHATASE 87 U/L (38-126); ANION GAP 12 (5-19); APPEARANCE,URINE SLIGHTLY-CLOUDY; ASPARTATE AMINO TRANSFERASE 23 U/L (14-36); BILIRUBIN,DIRECT 0.2 mg/dL (0.0-0.4); BILIRUBIN,TOTAL 0.2 mg/dL (0.2-1.3); BILIRUBIN,URINE NEGATIVE (NEGATIVE); BLOOD UREA NITROGEN 13 mg/dL (7-20); CALCIUM 9.6 mg/dL (8.4-10.2); CARBON DIOXIDE 25 mmol/L (22-30); CHLORIDE 106 mmol/L (98-107); COLOR,URINE YELLOW; GLUCOSE 96 mg/dL (75-110); GLUCOSE, URINE NEGATIVE (NEGATIVE); KETONES,URINE NEGATIVE (NEGATIVE); LEUKOCYTE ESTERASE,URINE NEGATIVE (NEGATIVE); LIPASE 240.6 U/L (23-300); NITRITE,URINE NEGATIVE (NEGATIVE); POTASSIUM 4.3 mmol/L (3.6-5.0); PROTEIN,URINE NEGATIVE (NEGATIVE); SODIUM 143.3 mmol/L (137-145); TOTAL PROTEIN 7.9 g/dL (6.3-8.2); URINE SPECIFIC GRAVITY 1.028; UROBILINOGEN,URINE NEGATIVE mg/dL (<2.0)
--- NOTE | 2019-03-05 13:36 | RADIOLOGY REPORT (SQ) ---
EXAM DESCRIPTION: U/S ABDOMEN LIMITED W/O DOP COMPLETED DATE/TIME: 03/05/2019 1:23 pm REASON FOR STUDY: RUQ pain COMPARISON: None. TECHNIQUE: Dynamic and static grayscale images acquired of the abdomen and recorded on PACS. Additio nal selected color Doppler and spectral images recorded. LIMITATIONS: None. FINDINGS: PANCREAS: Normal. LIVER: The liver demonstrates increased echogenicity consistent with fatty infiltration. The liver is normal in size measuring 13.8 cm. LIVER VASCULATURE: Normal directional flow of the main portal vein and hepatic veins. GALLBLADDER: The gallbladder is normal. The gallbladder wall thickness is normal measuring 2 mm. ULTRASOUND-DETECTED DAMICO'S SIGN: Negative. INTRAHEPATIC DUCTS AND COMMON DUCT: CBD is normal measuring 0.4 cm. Intrahepatic ducts normal calibe r. No filling defects. INFERIOR VENA CAVA: Normal flow. AORTA: The proximal abdominal aorta measures 2.3 cm in AP diameter. The mid abdominal aorta measure s 1.7 cm in AP diameter and distally 1 cm. RIGHT KIDNEY: The right kidney is normal measuring 9.8 cm in length x 4.3 cm in AP diameter by 4.5 c m in transverse diameter. No hydronephrosis. IMPRESSION: Normal right upper quadrant ultrasound. TECHNICAL DOCUMENTATION: JOB ID: [id number] 2010 [employer] [place]- All Rights Reserved Reading location - IP/workstation name: [email or web address]
[2019-03-05] MEDS ORDERED: KETOROLAC TROMETHAMINE INJ/PF 30 MG/1 ML SDV IM ONE (14:22)
--- NOTE | 2019-03-05 14:26 | ER Document Report ---
ED Cardiac - General Chief Complaint: Breast Problem Stated Complaint: PAIN BELOW RIGHT BREAST Time Seen by Provider: 03/05/19 11:48 Mode of Arrival: Ambulatory Information source: Patient TRAVEL OUTSIDE OF THE [place] IN LAST 30 DAYS: No - HPI Patient complains to provider of: Chest pain Notes: Patient here with complaints of right chest/rib pain. Pain started yesterday. Became constant today. She states that nothing in particular makes the pain better or worse, it is constant and moderate. She denies any fall or injury. No shortness of breath. No cough. No fever. She denies any nausea, vomiting, diarrhea. No dysuria or hematuria. No rash. No numbness, tingling, weakness. She denies any history of hypertension, high cholesterol, diabetes, CAD. She is a non-smoker, denies drug use. She drives a truck for living, denies any leg pain, hormone use, cancer, history of DVT or PE. She denies any other specific complaints at this time. - Related Data Allergies/Adverse Reactions: No Known Allergies Allergy (Verified 03/05/19 11:28) Past Medical History - General Information source: Patient - Social History Smoking Status: Unknown if Ever Smoked Chew tobacco use (# tins/day): No Frequency of alcohol use: Occasional Drug Abuse: None Family History: Reviewed & Not Pertinent, Arthritis, CAD, DM, Hyperlipidemia, Hypertension, Thyroid Disfunction Patient has suicidal ideation: No Patient has homicidal ideation: No Renal/ Medical History: Reports: Hx Ovarian Cysts. Denies: Hx Peritoneal Dialysis Past Surgical History: Comment Only: Hx Oral Surgery - wisdom teeth - Immunizations Immunizations up to date: Yes Hx Diphtheria, Pertussis, Tetanus Vaccination: Yes - 2012 Review of Systems - Review of Systems -: Yes All other systems reviewed and negative Physical Exam - Vital signs Vitals: Temp Pulse Resp BP Pulse Ox 97.9 F 86 18 165/78 H 97 03/05/19 11:41 03/05/19 11:41 03/05/19 11:41 03/05/19 11:41 03/05/19 11:41 - Notes Notes: GENERAL: alert, cooperative, nontoxic, no distress. HEAD: normocephalic, atraumatic EYES: conjunctiva pink without discharge, no external redness or swelling. EARS: no external swelling, no external redness NOSE: atraumatic, no external swelling MOUTH/THROAT: mucous membranes moist and pink, posterior pharynx without erythema, swelling, exudate. No trismus or drooling. NECK: soft, supple, full range of motion, no meningismus. CHEST: no distress, lungs clear and equal throughout. No wheezing, rales, rhonchi. CARDIAC: regular rate and rhythm, no murmur, normal capillary refill, normal pulses. No peripheral edema noted. Tenderness to palpation along the right lower lateral ribs. No rash. No crepitus. ABDOMEN: Soft, nontender. No rebound tenderness or guarding. No mass. BACK: full range of motion, no CVA tenderness. EXTREMITIES: full range of motion of all extremities. No redness, no swelling. NEURO: alert and oriented x 3, no focal deficits, full range of motion of all extremities. PYSCH: appropriate mood, affect. Patient is cooperative. SKIN: pink, warm, dry, no rash. Course - Re-evaluation Re-evalutation: 03/05/19 15:15 Patient is nontoxic-appearing with stable vitals. Patient here with complaints of right rib pain for the last few days. No injury. Nothing seems to make it better or worse aside from touching the area. No significant abdominal pain, no nausea, vomiting, diarrhea, no fever. On exam she has tenderness along the right lateral/anterior ribs. No rash or crepitus noted in this area. The remainder of her exam is unremarkable. Urine is negative, negative, LFTs are normal, lipase is normal, CBC is unremarkable with a normal white count. Ultrasound right upper quadrant is unremarkable. Chest x-ray is negative. Patient has no pulmonary embolism risk factors, is PERC rule negative and Wells criteria negative for PE. Pain does seem to be muscular skeletal nature as it is reproducible with palpation. At this point the patient will be discharged home with a prescription for Naprosyn with instructions to follow-up if she continues to have pain in the next 3 to 4 days, sooner for worsening pain, fever, difficulty breathing or swelling, persistent vomiting, or for any further concerns. The patient's emergency department workup and current diagnosis were explained to the patient and or family. Follow-up instructions were provided. Medications if prescribed were discussed. Instructions for when to return to the emergency department including specific worrisome symptoms were discussed with the patient and/or family. - Vital Signs Vital signs: Temp Pulse Resp BP Pulse Ox 97.9 F 86 18 165/78 H 97 03/05/19 11:41 03/05/19 11:41 03/05/19 11:41 03/05/19 11:41 03/05/19 11:41 - Laboratory Result Diagrams: 03/05/19 12:00 03/05/19 12:00 Laboratory results interpreted by me: 03/05/19 12:00 Hgb 10.6 L Hct 34.1 L MCV 77 L MCH 24.1 L MCHC 31.2 L RDW 17.4 H Plt Count 530 H - Diagnostic Test Radiology reviewed: Image reviewed, Reports reviewed - Ultrasound of the right upper quadrant negative, chest x-ray negative. Discharge - Discharge Clinical Impression: Right-sided chest wall pain Condition: Stable Disposition: HOME, SELF-CARE Instructions: Chest Wall Pain ([facility]), Anti-Inflammatory Medication ([facility]) Additional Instructions: Take medication as prescribed. Apply ice to sore area. Follow-up if not better in the next 3 days, sooner for worsening pain, fever, persistent vomiting, difficulty breathing, or for any further concerns. Prescriptions: Naproxen [Naprosyn] 500 mg PO BID #20 tablet Forms: Elevated Blood Pressure, Smoking Cessation Education Referrals: [facility] [Provider Group] - Follow up as needed
--- NOTE | 2019-03-05 14:52 | RADIOLOGY REPORT (SQ) ---
EXAM DESCRIPTION: CHEST 2 VIEWS COMPLETED DATE/TIME: 03/05/2019 2:40 pm REASON FOR STUDY: right chest wall pain COMPARISON: 10/01/2013 EXAM PARAMETERS: NUMBER OF VIEWS: two views TECHNIQUE: Digital Frontal and Lateral radiographic views of the chest acquired. RADIATION DOSE: NA LIMITATIONS: none FINDINGS: LUNGS AND PLEURA: No opacities, masses or pneumothorax. No pleural effusion. MEDIASTINUM AND HILAR STRUCTURES: No masses or contour abnormalities. HEART AND VASCULAR STRUCTURES: Heart normal size. No evidence for failure. BONES: No acute findings. HARDWARE: None in the chest. OTHER: No other significant finding. IMPRESSION: No acute abnormality of the lungs. No radiographic findings to explain right chest pain . TECHNICAL DOCUMENTATION: JOB ID: [id number] [employer]- All Rights Reserved Reading location - IP/workstation name: [email or web address]
[2019-03-05 15:35] VITALS: BP 142/72
== END 2019-03-05 15:37 | disposition home or self-care (01) ==
LOC: ER 11:26
DX: R07.89 Other chest pain (principal); R07.81 Pleurodynia
CPT/HCPCS: 99284; 96372; 36415; 83690; 84703; 85025; 80053; 81001; 71046; 76705; J1885

== ENCOUNTER 2019-07-05 12:05 | Emergency (ER) | payer SELFPAY ==
[2019-07-05] MEDS ORDERED: ASPIRIN 81 MG TABLET, CHEWABLE PO ONE (12:32)
--- NOTE | 2019-07-05 12:35 | ER Document Report ---
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 She reports it continues today. She reports it was so hurting so bad she had to putty remover yesterday. Denies fever nausea vomiting diarrhea. Reports she had some left axilla pain earlier. Denies history of drug use. Denies frequent use of energy drinks, denies . Reports her mother when she is approximate 54 years old of CHF. Respiratory rate even unlabored. Chest wall not tender to palpate EKG shows sinus rhythm I have greeted and performed a rapid initial assessment of this patient. A comprehensive ED assessment and evaluation of the patient, analysis of test results and completion of the medical decision making process will be conducted by additional ED providers. Dictation of this chart was performed using voice recognition software; therefore, there may be some unintended grammatical errors. TRAVEL OUTSIDE OF THE [place] IN LAST 30 DAYS: No - Related Data Allergies/Adverse Reactions: No Known Allergies Allergy (Verified 07/05/19 12:32) Past Medical History - Social History Chew tobacco use (# tins/day): No Frequency of alcohol use: Occasional Drug Abuse: None Family history: Reviewed & Not Pertinent Renal/ Medical History: Reports: Hx Ovarian Cysts. Denies: Hx Peritoneal Dialysis Past Surgical History: Comment Only: Hx Oral Surgery - wisdom teeth - Immunizations Immunizations up to date: Yes Hx Diphtheria, Pertussis, Tetanus Vaccination: Yes - 2012 Physical Exam - Vital signs Vitals: Temp Pulse Resp BP Pulse Ox 97.9 F 65 20 141/72 H 100 07/05/19 12:28 07/05/19 12:28 07/05/19 12:28 07/05/19 12:28 07/05/19 12:28 Course - Vital Signs Vital signs: Temp Pulse Resp BP Pulse Ox 97.9 F 65 20 141/72 H 100 07/05/19 12:28 07/05/19 12:28 07/05/19 12:28 07/05/19 12:28 07/05/19 12:28
[2019-07-05 12:52] LABS: ABSOLUTE BASOPHILS # (AUTO) 0.1 10^3/uL (0.0-0.2); ABSOLUTE EOSINOPHILS # (AUTO) 0.1 10^3/uL (0.0-0.6); ABSOLUTE MONOCYTES (AUTO) 0.7 10^3/uL (0.1-1.4); ABSOLUTE NEUT (AUTO) 3.8 10^3/uL (1.7-8.2); BASOPHILS % (AUTO) 0.9 % (0-2); EOSINOPHILS % (AUTO) 1.1 % (0-6); HEMOGLOBIN 9.7 g/dL (12.0-15.5); MEAN CORPUSCULAR HGB CONC 30.4 g/dL (32.0-36.0); MEAN CORPUSCULAR VOLUME 76 fl (80-97); MONOCYTES % (AUTO) 8.7 % (3-13); PLATELET COUNT 439 10^3/uL (150-450); RED BLOOD COUNT 4.22 10^6/uL (3.72-5.28); RED CELL DISTRIBUTION WIDTH 17.6 % (11.5-14.0); SEGMENTED NEUTROPHILS % (AUTO) 50.3 % (42-78); TOTAL CELLS COUNTED % (AUTO) 100 %; WHITE BLOOD COUNT 7.6 10^3/uL (4.0-10.5)
--- NOTE | 2019-07-05 12:59 | RADIOLOGY REPORT (SQ) ---
EXAM DESCRIPTION: CHEST 2 VIEWS COMPLETED DATE/TIME: 07/05/2019 12:50 pm REASON FOR STUDY: CP COMPARISON: 03/05/2019 EXAM PARAMETERS: NUMBER OF VIEWS: two views TECHNIQUE: Digital Frontal and Lateral radiographic views of the chest acquired. RADIATION DOSE: NA LIMITATIONS: none FINDINGS: LUNGS AND PLEURA: No opacities, masses or pneumothorax. No pleural effusion. MEDIASTINUM AND HILAR STRUCTURES: No masses or contour abnormalities. HEART AND VASCULAR STRUCTURES: Heart normal size. No evidence for failure. BONES: No acute findings. Mild dextroconvex thoracic curvature. HARDWARE: None in the chest. OTHER: No other significant finding. IMPRESSION: NO ACUTE RADIOGRAPHIC FINDING IN THE CHEST. TECHNICAL DOCUMENTATION: JOB ID: [id number] [employer]- All Rights Reserved Reading location - IP/workstation name: [email or web address]
[2019-07-05 13:12] LABS: ALKALINE PHOSPHATASE 69 U/L (38-126); ANION GAP 10 (5-19); ASPARTATE AMINO TRANSFERASE 21 U/L (14-36); BILIRUBIN,DIRECT 0.1 mg/dL (0.0-0.4); BILIRUBIN,TOTAL 0.2 mg/dL (0.2-1.3); BLOOD UREA NITROGEN 14 mg/dL (7-20); CALCIUM 9.1 mg/dL (8.4-10.2); CARBON DIOXIDE 23 mmol/L (22-30); CHLORIDE 107 mmol/L (98-107); CREATINE KINASE 152 U/L (30-135); GLUCOSE 90 mg/dL (75-110); POTASSIUM 3.9 mmol/L (3.6-5.0); TOTAL PROTEIN 7.5 g/dL (6.3-8.2)
[2019-07-05 13:37] LABS: APPEARANCE,URINE CLEAR; BILIRUBIN,URINE NEGATIVE (NEGATIVE); COLOR,URINE YELLOW; GLUCOSE, URINE NEGATIVE (NEGATIVE); KETONES,URINE TRACE mg/dL (NEGATIVE); LEUKOCYTE ESTERASE,URINE NEGATIVE (NEGATIVE); NITRITE,URINE NEGATIVE (NEGATIVE); PROTEIN,URINE 30 mg/dL (NEGATIVE); URINE SPECIFIC GRAVITY 1.034; UROBILINOGEN,URINE NEGATIVE mg/dL (<2.0)
--- NOTE | 2019-07-05 13:43 | ER Document Report ---
ED General - General Chief Complaint: Chest Pain Stated Complaint: CHEST PAIN/SHORTNESS OF BREATH Time Seen by Provider: 07/05/19 12:29 Mode of Arrival: Ambulatory TRAVEL OUTSIDE OF THE [place] IN LAST 30 DAYS: No - HPI Notes: Patient is a 29-year-old female with a history of anemia who presents complaining of right-sided sternal chest pain that is been intermittent for the past 5 days, but more noticeable since yesterday. Patient describes it as a sharp pain. Patient states that sometimes movement of her right arm can make the pain worse. The pain does not radiate. She is able to eat and drink without difficulty. She is urinating normally and having normal bowel moveme nts. Patient does drive truck as a profession. Denies any prolonged immobilization, recent surgery/trauma, personal cancer history, hormone use, smoking, or previous DVT/PE. Denies any headache, fever, neck pain, URI, sore throat, palpitations, syncope, cough, shortness of breath, wheeze, dyspnea, abdominal pain, nausea/vomiting/diarrhea, urinary retention, dysuria, hematuria, leg pain/swelling, or rash. - Related Data Allergies/Adverse Reactions: No Known Allergies Allergy (Verified 07/05/19 12:32) Past Medical History - General Information source: Patient - Social History Smoking Status: Never Smoker Chew tobacco use (# tins/day): No Frequency of alcohol use: Occasional Drug Abuse: None Family History: Reviewed & Not Pertinent, Arthritis, CAD, DM, Hyperlipidemia, Hypertension, Thyroid Disfunction Patient has suicidal ideation: No Patient has homicidal ideation: No Renal/ Medical History: Reports: Hx Ovarian Cysts. Denies: Hx Peritoneal Dialysis Past Surgical History: Reports: Hx Oral Surgery - wisdom teeth - Immunizations Immunizations up to date: Yes Hx Diphtheria, Pertussis, Tetanus Vaccination: Yes - 2012 Review of Systems - Review of Systems -: Yes All other systems reviewed and negative Physical Exam - Vital signs Vitals: Temp Pulse Resp BP Pulse Ox 97.9 F 65 20 141/72 H 100 07/05/19 12:28 07/05/19 12:28 07/05/19 12:28 07/05/19 12:28 07/05/19 12:28 - Notes Notes: PHYSICAL EXAMINATION: GENERAL: Well-appearing, well-nourished and in no acute distress. HEAD: Atraumatic, normocephalic. EYES: Pupils equal round and reactive to light, extraocular movements intact, sclera anicteric, conjunctiva are normal. ENT: Nares patent and without discharge. oropharynx clear without exudates. No tonsilar hypertrophy or erythema. Moist mucous membranes. NECK: Normal range of motion, supple without lymphadenopathy Chest: + reproducible tenderness to palpation of the rt sternal area and reproducible with arm extension/abduction. LUNGS: Breath sounds clear to auscultation bilaterally and equal. No wheezes rales or rhonchi. HEART: Regular rate and rhythm without murmurs, rubs, gallops. ABDOMEN: Soft, nontender, nondistended abdomen. No guarding, no rebound. No masses appreciated. Normal bowel sounds present. No CVA tenderness bilater ally. Rectal (accompanied by female rn, helen): brown stool, no melena or hematochezia. Non-tender. guiac negative. Musculoskeletal: FROM to passive/active. Strength 5+/5. Ruben neg. No asymmetry to LE's. Extremities: No cyanosis, clubbing, or edema b/l. Peripheral pulses 2+. Capillary refill less than 3 seconds. NEUROLOGICAL: Normal speech, normal gait. PSYCH: Normal mood, normal affect. SKIN: Warm, Dry, normal turgor, no rashes or lesions noted. Course - Re-evaluation Re-evalutation: 07/05/19 14:23 Patient is an afebrile, well-hydrated 29-year-old female who presents to the ED with chest wall pain and anemia (suspect iron deficient w/o any acute bleed). Pt is hemodynamically stable. Vitals are acceptable without any significant tachycardia, tachypnea, or hypoxia. PE is otherwise unremarkable aside from the reproducible chest wall tenderness by palp and ROM--contrary to triage note. Patient is nontoxic-appearing and is tolerating p.o. without any difficulties. Pt is currently asymptomatic. CBC, CMP, EKG/cardiac enzyme, chest x-ray are all unremarkable for any acute pathology. Guiac negative. Patient has a heart score of 1, Wells score of 0, and is PERC negative. Patient does not have any dyspnea or shortness of breath. Patient's presentation and symptomatology creates low suspicion for ACS, PE, pneumothorax, pericarditis, dissection, respiratory compromise, severe dehydration, sepsis, meningitis, or other systemic emergent condition at this time. Patient is aware that this condition can change from initial presentation and she needs to monitor symptoms closely and seek medical attention for any acute changes. Pt is feeling better and would like to go home. I will send her home with iron and naproxen. Recommend conservative measures for symptoms. Recheck with your PCM in 2-3 days. Consider consult with Cardiology. Return to the ED with any worsening/concerning sympt oms otherwise as reviewed in discharge. Patient is in agreement. - Vital Signs Vital signs: Temp Pulse Resp BP Pulse Ox 97.9 F 65 20 141/72 H 100 07/05/19 12:28 07/05/19 12:28 07/05/19 12:28 07/05/19 12:28 07/05/19 12:28 - Laboratory Result Diagrams: 07/05/19 12:40 07/05/19 12:40 Laboratory results interpreted by me: 07/05/19 07/05/19 07/05/19 12:40 12:40 13:20 Hgb 9.7 L Hct 32.0 L MCV 76 L MCH 23.0 L MCHC 30.4 L RDW 17.6 H Creatine Kinase 152 H Urine Protein 30 H Urine Ketones TRACE H Urine Ascorbic Acid 40 H Discharge - Discharge Clinical Impression: Chest wall pain Anemia Qualifiers: Anemia type: unspecified type Qualified Code(s): D64.9 - Anemia, unspecified Condition: Stable Disposition: HOME, SELF-CARE Instructions: Chest Wall Pain ([facility]), Anemia ([facility]) Additional Instructions: Maintain adequate fluid and food intake Take home medications as directed healthy diet ice/heat may help light stretches Monitor blood pressure daily and keep a log Monitor symptoms for any acute changes Recheck with your PCM in 2-3 days Consider a follow-up with cardiology Return to the ED with any worsening symptoms and/or development of fever, headache, chest pain, palpitations, syncope, shortness of breath, trouble breathing, abdominal pain, n/v/d, blood in stool/urine, loss of control of bowel/bladder, urinary retention, muscle weakness/paralysis, numbness/tingling, or other worsening symptoms that are concerning to you. Prescriptions: Docusate Sodium [Colace] 100 mg PO DAILY #30 capsule Ferrous Sulfate [Feosol 325 mg Tablet] 325 mg PO DAILY #30 tab Forms: Elevated Blood Pressure Referrals: MARIO STONE MD [ACTIVE STAFF] - Follow up as needed ODETTE SETH MD [ACTIVE STAFF] - Follow up as needed
[2019-07-05 13:53] LABS: URINE AMPHETAMINES SCREEN NEGATIVE; URINE BARBITURATES SCREEN NEGATIVE; URINE BENZODIAZEPINES SCREEN NEGATIVE; URINE COCAINE SCREEN NEGATIVE; URINE MARIJUANA (THC) SCREEN NEGATIVE; URINE METHADONE SCREEN NEGATIVE; URINE PHENCYCLIDINE SCREEN NEGATIVE
[2019-07-05 14:36] VITALS: BP 129/74
--- NOTE | 2019-07-06 09:09 | EKG REPORT ---
SEVERITY:- NORMAL ECG - SINUS RHYTHM : Confirmed by: Satish Jane 06-Jul-2019 09:08:01
== END 2019-07-05 14:36 | disposition home or self-care (01) ==
LOC: ER 12:05
DX: R07.89 Other chest pain (principal); D64.9 Anemia, unspecified; R06.02 Shortness of breath; M79.601 Pain in right arm
CPT/HCPCS: 36415; 71046; 80053; 80307; 81001; 81025; 82550; 84484; 85025; 93005; 93010; 99285

== ENCOUNTER 2020-10-14 08:51 | Emergency (ER) | payer SELFPAY ==
[2020-10-14 09:03] VITALS: BP 135/72
--- NOTE | 2020-10-14 10:38 | ER Document Report ---
ED General - General Chief Complaint: Knee Pain Stated Complaint: FALL/BACK AND LEG PAIN,SWELLING TRAVEL OUTSIDE OF THE [place] IN LAST 30 DAYS: No - HPI Notes: Chief Complaint: Right knee pain, bilateral leg swelling, back pain Historian: History obtained from patient HPI: This is a 30-year-old female presents to the ER complaining of right knee pain, bilateral lower leg swelling, and right-sided back pain x10 days. Patient says she slipped on ice on day falling forward onto her right knee. She has been ambulatory since injury. No head injury or loss of consciousness. This occurred in [place]. 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 Patient has been off work since but says her lower legs have continued to remain swollen. She says her lower legs often swell when she is working but usually resolve when she is off work. She denies pain to these lower legs. No chest pain, shortness of breath, hemoptysis, DVT/PE history, hormones, surgery or cancer. Her right-sided back pain is from the upper back down to the low back. Does not radiate into the legs. No incontinence, saddle anesthesia, lower extremity weakness. She is not taking any medications. ROS: Constitutional: no fevers. HEENT: no RENTERIA, sore throat, or vision changes. CV: no chest pain or palpitations. Positive for lower extremity swelling Resp: no cough or SOB. GI: no abdominal pain, or n/v/d. : no dysuria, hematuria, or incont. MSK: Right knee pain, right-sided back pain Skin: no rashes or itching. Neuro: no seizures, weakness, numbness, or confusion. Hematological: no ecchymosis or easy bleeding. Endocrine: no polyuria/polydipsia, no heat/cold intolerance. Psych: no SI/HI, AH/VH or memory loss. PMHx: Reviewed and agree as charted by RN. PSHx: Reviewed and agree as charted by RN. SOCHx: Reviewed and agree as charted by RN. FHX: No significant familial comorbid conditions directly related to patient complaint Current Medications: Reviewed and agree with the patient medications as charted by the RN. Allergies: Reviewed and agree with the listed allergies as charted by the RN Physical Exam: Vitals: Reviewed in chart as documented by RN. General: Alert and in NAD. Head: Normocephalic; atraumatic Eyes: PERRLA, Conjunctivae clear sclerae non-icteric bilat ENT: no soft palate swelling or uvular deviation Neck: trachea midline, no unilateral swelling/tenderness/lymphadenopathy CV: RRR, no M/R/G; symmetric distal pulses Resp: respirations even and unlabored, CTA bilat. GI: abd soft and nondistended. NTTP. normal BS. no masses/HSM. no CVAT bilat MSK: Patient is tender along the thoracic paraspinous all the way down to the lumbar right side. No midline swelling or tenderness. Straight leg raise negative bilateral. Full range of motion of CTL spine. No saddle anesthesia. Strength 5 out of 5 and equal to bilateral lower extremities. Sensation intact distally. Pedal pulse 2+, cap refill less than 3. Right kneeno obvious effusion. No erythema or open wounds. Patient has full range of motion of knee with increased pain with extension. No obvious laxity noted on exam. Full range of motion of the hip, ankle. Mild 1+ swelling to BLE, nonpitting. Right lower leg is about 1 to 2 cm larger than the left. No posterior calf tenderness/erythema. Negative Homans bilateral. Skin: warm, moist, good turgor. no rash/lesions Neuro: Alert and oriented X 4. following CN 2-12 intact. no unilateral weakness/numbness Psych: No SI/HI or AH/VH. Medical Decision-Making: Consider various etiologies including but not limited to DVT, dependant edema, knee sprain, skin/soft tissue structure injury, MSK injury, strain/sprain, fracture, dislocation, bursitis, tendonitis, contusion, ect Plan-we will get bilateral Doppler ultrasounds on her lower extremities to rule out DVT. She does have risk factors considering she is a long-distance flatbed truck driver as well as recent trauma from falling down. My suspicion is low as her exam is more likely to be dependent edema. She has no signs of PE. We will also get a knee x-ray. Back pain is likely related to muscle strain/spasm she is neurologically intact. No concerns for compressive myelopathy or infectious process. We will start her on both relaxers for her back pain, give her Ortho referral for her knee pain and will certainly Erasmo wrap and treat with yamile NSAIDs/Tylenol etc. pending ultrasound at this time. This course of action was discussed with the patient and/or family. They were amenable to this, verbalized understanding, and were without further questions. - Related Data Allergies/Adverse Reactions: No Known Allergies Allergy (Verified 07/05/19 12:32) Past Medical History - Social History Smoking Status: Never Smoker Frequency of alcohol use: Occasional Drug Abuse: None Family History: Reviewed & Not Pertinent, Arthritis, CAD, DM, Hyperlipidemia, Hypertension, Thyroid Disfunction Renal/ Medical History: Reports: Hx Ovarian Cysts. Denies: Hx Peritoneal Dialysis Past Surgical History: Reports: Hx Oral Surgery - wisdom teeth - Immunizations Immunizations up to date: Yes Hx Diphtheria, Pertussis, Tetanus Vaccination: Yes - 2012 Physical Exam - Vital signs Vitals: Temp Pulse Resp BP Pulse Ox 98.1 F 78 16 135/72 H 100 10/14/20 09:02 10/14/20 09:02 10/14/20 09:02 10/14/20 09:02 10/14/20 09:02 Course - Re-evaluation Re-evalutation: 10/14/20 13:36 Knee x-ray is negative. Doppler ultrasound of lower extremities is also negative for DVT. Will discharge with previous plan PCP follow-up this week Ortho referral was given to follow-up for her knee pain. - Vital Signs Vital signs: Temp Pulse Resp BP Pulse Ox 98.1 F 78 16 135/72 H 100 10/14/20 09:02 10/14/20 09:02 10/14/20 09:02 10/14/20 09:02 10/14/20 09:02 - Laboratory Results Critical Laboratory Results Reviewed: No Critical Results - Radiology Results Critical Radiology Results Reviewed: No Critical Results Discharge - Discharge Clinical Impression: Localized swelling of both lower legs Knee pain, right Qualifiers: Chronicity: acute Qualified Code(s): M25.561 - Pain in right knee Right-sided thoracic back pain Qualifiers: Chronicity: acute Qualified Code(s): M54.6 - Pain in thoracic spine Condition: Stable Disposition: HOME, SELF-CARE Instructions: Suspected Internal Knee Injury ([facility]), Sprained Knee ([facility]) Additional Instructions: Call and schedule appointment with orthopedics to follow-up with your right knee pain. Take medications as prescribed. Rest ice wrap and elevate your knee. Weightbearing as tolerated. Follow-up with your doctor in 2 to 3 days for recheck return to the ER if your condition worsens. Prescriptions: Cyclobenzaprine HCl [Flexeril 10 mg Tablet] 10 mg PO TIDP PRN #15 tab PRN Reason: Ibuprofen [Motrin 600 Mg Tablet] 600 mg PO TID #15 tablet Referrals: LENNOX GIL DO [ACTIVE STAFF] - Follow up as needed
--- NOTE | 2020-10-14 11:40 | RADIOLOGY REPORT (SQ) ---
EXAM DESCRIPTION: KNEE RIGHT 4 VIEWS IMAGES COMPLETED DATE/TIME: 10/14/2020 11:30 am REASON FOR STUDY: fall, right knee pain COMPARISON: None. NUMBER OF VIEWS: Four views. TECHNIQUE: AP, lateral, and both oblique radiographic images acquired of the right knee. LIMITATIONS: None. FINDINGS: MINERALIZATION: Normal. BONES: No acute fracture or dislocation. No worrisome bone lesions. JOINT: No effusion. SOFT TISSUES: No soft tissue swelling. No radio-opaque foreign body. OTHER: No other significant finding. IMPRESSION: NEGATIVE STUDY OF THE RIGHT KNEE. NO RADIOGRAPHIC EVIDENCE OF ACUTE INJURY. TECHNICAL DOCUMENTATION: JOB ID: [id number] 2010 [employer]- All Rights Reserved Reading location - IP/workstation name: [email or web address]
--- NOTE | 2020-10-14 13:21 | RADIOLOGY REPORT (SQ) ---
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 TECHNIQUE: Dynamic and static lomeli scale and color images acquired of both lower extremity venous sy stems. Selected spectral images acquired with additional compression and augmentation maneuvers. Imag es stored on PACS. LIMITATIONS: None. FINDINGS: RIGHT LEG COMMON FEMORAL AND FEMORAL: Normal phasicity, compression and augmentation. No visualized echogenic m aterial on lomeli scale. No defects on color images. POPLITEAL: Normal compression and augmentation. No visualized echogenic material on lomeli scale. No de fects on color images. CALF VESSELS: Normal compression and augmentation. No visualized echogenic material on lomeli scale. No defects on color image. GSV AND SSV: Normal compression. No visualized echogenic material on lomeli scale. No defects on color images. ANY DEEP VENOUS INSUFFICIENCY: Not evaluated. ANY EVIDENCE OF POPLITEAL CYST: No. OTHER: No other significant finding. LEFT LEG COMMON FEMORAL AND FEMORAL: Normal phasicity, compression and augmentation. No visualized echogenic m aterial on lomeli scale. No defects on color images. POPLITEAL: Normal compression and augmentation. No visualized echogenic material on lomeli scale. No de fects on color images. CALF VESSELS: Normal compression and augmentation. No visualized echogenic material on lomeli scale. No defects on color images. GSV AND SSV: Normal compression. No visualized echogenic material on lomeli scale. No defects on color images. ANY DEEP VENOUS INSUFFICIENCY: Not evaluated. ANY EVIDENCE POPLITEAL CYST: No. OTHER: No other significant finding. IMPRESSION: NO EVIDENCE DVT OR SVT IN EITHER LEG. TECHNICAL DOCUMENTATION: JOB ID: [id number] [facility]- All Rights Reserved Reading location - IP/workstation name: [email or web address]
== END 2020-10-14 14:00 | disposition home or self-care (01) ==
LOC: ER 08:51
DX: M25.561 Pain in right knee (principal); M54.6 Pain in thoracic spine; M79.89 Other specified soft tissue disorders; M54.9 Dorsalgia, unspecified; M54.5 Low back pain; R60.0 Localized edema; W00.0XXA Fall on same level due to ice and snow, initial encounter
CPT/HCPCS: 93970; 99284